=== PATIENT | female | born 1960 | race Caucasian/White ===

== ENCOUNTER 2017-05-29 11:06 | Outpatient (CLI) | payer MEDICARE ==
[~2017-05-29] VITALS: Ht 149.9 cm; Wt 77.3 kg
[~2017-05-29 11:06] MED LIST: ACETAMINOPHEN-C1 TAB PO; COLACE100 MG PO; COREG 3.1253.125 MG PO; ELIQUIS2.5 MG PO; GARCINIA CAMBOGIA PO; HYDROCODONE-APA1 TAB PO; LIPITOR10 MG PO; MOBIC7.5 MG PO; NEURONTIN 300300 MG PO; OXYCODONE HCL5 MG PO; RANEXA500 MG PO; WELLBUTRIN75 MG PO; XANAX0.25 MG PO; ZETIA10 MG PO; [UNRECOGNIZED DRUG - OTHER]
[2017-05-29] MEDS ORDERED: VALIUM5 MG PO (11:37)
[2017-05-29] MEDS ORDERED: CYMBALTA30 MG PO (11:38)
[2017-05-29] MEDS ORDERED: VITAMIN B-1000 MCG/M IM (11:39)
[2017-05-29] MEDS ORDERED: FUROSEMIDE20 MG PO (11:39)
[2017-05-29 11:47] VITALS: BP 81/35; Ht 149.9 cm; Wt 77.3 kg
== END 2017-05-29 12:21 | disposition home or self-care (01) ==
LOC: D.OPS 11:06
DX: M81.0 Age-related osteoporosis without current pathological fracture (principal)

== ENCOUNTER 2018-07-05 15:03 | Observation (INO) | payer MEDICARE ==
[~2018-07-05] VITALS: Ht 149.9 cm; Wt 77.3 kg
[~2018-07-05 15:03] MED LIST changes: +CYMBALTA30 MG PO; +FUROSEMIDE20 MG PO; +VALIUM5 MG PO; +VITAMIN B-1000 MCG/M IM
[2018-07-05 21:00] VITALS: BP 142/59
[2018-07-05 22:00] VITALS: BP 129/69
[2018-07-05 22:33] LABS: BASOPHILS 0.3 % (0-2); EOSINOPHILS 1.6 % (0-7); HEMATOCRIT 35.5 % (36.0-48.0); HEMOGLOBIN 11.8 g/dL (12-16); LYMPHOCYTES 39.5 % (15-50); MCH 30.6 pg (26.0-34.0); MCHC 33.2 g/dL (31.0-37.0); MCV 92.2 fL (80.0-100.0); MEAN PLATELET VOLUME 9.7 fL (7.4-10.4); MONOCYTES 8.6 % (2-11); PLATELET COUNT 207 10x3/uL (130-400); RBC 3.85 10x6/uL (4.00-5.40); RDW 13.6 % (11.5-14.5); WBC 6.2 10x3/uL (4.8-10.8)
[2018-07-05 22:39] LABS: INR 1.17 (0.85-1.17); PROTIME 14.5 SECONDS (11.6-15.0)
[2018-07-05 22:47] LABS: ALBUMIN 3.3 g/dL (3.4-5.0); ANION GAP 11.5 mmol/L (8-16); BILIRUBIN - TOTAL 0.31 mg/dL (0.2-1.3); CALCIUM 8.6 mg/dL (8.5-10.1); CARBON DIOXIDE 25.7 mmol/L (21.0-32.0); CREATININE - SERUM 0.9 mg/dL (0.6-1.3); POTASSIUM - SERUM 3.2 mmol/L (3.5-5.1); PROTEIN - SERUM 7.1 g/dL (6.4-8.2)
[2018-07-05] MEDS ORDERED: TRAZODONE HCL50 MG PO (23:27)
[2018-07-05] MEDS ORDERED: REXULTI1 MG PO (23:27)
[2018-07-05] MEDS ORDERED: NORCO 7.5/325 T1 TA1 PO (23:29)
[2018-07-05 23:30] VITALS: BP 116/51; BMI 34.4
[2018-07-06 04:00] VITALS: BP 101/60
[2018-07-06 06:33] LABS: BASOPHILS 0.5 % (0-2); EOSINOPHILS 2.8 % (0-7); HEMATOCRIT 32.7 % (36.0-48.0); HEMOGLOBIN 10.9 g/dL (12-16); IMMATURE GRANULOCYTES 0.2 % (0-5); LYMPHOCYTES 45.7 % (15-50); MCH 30.7 pg (26.0-34.0); MCHC 33.3 g/dL (31.0-37.0); MCV 92.1 fL (80.0-100.0); MEAN PLATELET VOLUME 9.7 fL (7.4-10.4); MONOCYTES 8.2 % (2-11); NEUTROPHILS 42.6 % (40-80); PLATELET COUNT 185 10x3/uL (130-400); RBC 3.55 10x6/uL (4.00-5.40); RDW 13.9 % (11.5-14.5); WBC 6.1 10x3/uL (4.8-10.8)
[2018-07-06 06:43] LABS: INR 1.24 (0.85-1.17); PROTIME 15.1 SECONDS (11.6-15.0)
[2018-07-06 06:48] LABS: CALC OSMOLALITY 275 mosm/kg (275-300); CALCIUM 8.2 mg/dL (8.5-10.1); CARBON DIOXIDE 25.3 mmol/L (21.0-32.0); CHLORIDE - SERUM 108 mmol/L (98-107); CREATININE - SERUM 0.8 mg/dL (0.6-1.3); GLUCOSE 84 mg/dL (74-106); POTASSIUM - SERUM 3.2 mmol/L (3.5-5.1); SODIUM 139 mmol/L (136-145); UREA NITROGEN 9 mg/dL (7-18); eGFR NON AFRICAN AMERICAN 77 mL/min (90-120)
[2018-07-06 08:32] VITALS: BP 134/63
[2018-07-06 11:00] VITALS: BP 105/48
[2018-07-06 13:07] VITALS: Ht 149.9 cm; Wt 77.3 kg
[2018-07-06 13:35] LABS: % SATURATION 23 % (15-55); IRON 48 ug/dl (35-150); TOTAL IRON BIND CAPACITY 208 ug/dl (260-445); UNSAT IRON BIND CAPACITY 160 ug/dl (150-375)
[2018-07-06 16:00] VITALS: BP 107/52
[2018-07-06 20:00] VITALS: BP 90/46
[2018-07-07 04:00] VITALS: BP 85/25
[2018-07-07 06:33] LABS: BASOPHILS 0.5 % (0-2); EOSINOPHILS 3.3 % (0-7); HEMATOCRIT 32.1 % (36.0-48.0); HEMOGLOBIN 10.3 g/dL (12-16); IMMATURE GRANULOCYTES 0.3 % (0-5); MCHC 32.1 g/dL (31.0-37.0); MCV 93.6 fL (80.0-100.0); MEAN PLATELET VOLUME 9.5 fL (7.4-10.4); MONOCYTES 9.3 % (2-11); NEUTROPHILS 44.6 % (40-80); PLATELET COUNT 175 10x3/uL (130-400); RBC 3.43 10x6/uL (4.00-5.40); RDW 13.9 % (11.5-14.5)
[2018-07-07 06:59] LABS: ANION GAP 8.9 mmol/L (8-16); CALCIUM 8.3 mg/dL (8.5-10.1); CARBON DIOXIDE 26.4 mmol/L (21.0-32.0); CREATININE - SERUM 1.1 mg/dL (0.6-1.3); POTASSIUM - SERUM 4.3 mmol/L (3.5-5.1)
[2018-07-07 10:22] VITALS: BP 95/36
[2018-07-07] MEDS ORDERED: MS CONTIN30 MG PO (13:56)
[2018-07-10 08:18] LABS: FOLATE (FOLIC ACID) - SERUM 7.5 ng/mL (>3.0)
== END 2018-07-07 15:25 | disposition home or self-care (01) ==
LOC: D.ER 15:03 → D.MS 22:16 → D.EDHOLD 22:16 → OBSVTIME 22:17 → D.MS 22:33
PROVIDERS: Family Medicine; Internal Medicine Nephrology
DX: S32.039A Unspecified fracture of third lumbar vertebra, initial encounter for closed fracture (principal); S32.049A Unspecified fracture of fourth lumbar vertebra, initial encounter for closed fracture; W19.XXXA Unspecified fall, initial encounter; I25.10 Atherosclerotic heart disease of native coronary artery without angina pectoris; Z95.5 Presence of coronary angioplasty implant and graft; R53.2 Functional quadriplegia; J44.9 Chronic obstructive pulmonary disease, unspecified; K21.9 Gastro-esophageal reflux disease without esophagitis; D64.9 Anemia, unspecified; E87.6 Hypokalemia; I11.0 Hypertensive heart disease with heart failure; I50.9 Heart failure, unspecified

== ENCOUNTER 2019-12-19 13:35 | Inpatient (IN) | payer MEDICARE ==
[~2019-12-19] VITALS: Ht 149.9 cm; Wt 69.4 kg
[~2019-12-19 13:35] MED LIST changes: +BUPROPION XL300 MG PO; -COREG 3.1253.125 MG PO; +COREG6.25 MG PO; +MS CONTIN30 MG PO; +NORCO 7.5/325 T1 TA1 PO; +REXULTI1 MG PO; +TRAZODONE HCL50 MG PO; -WELLBUTRIN75 MG PO
[2020-01-13] MEDS ORDERED: EFFEXOR75 MG PO (13:46)
[2020-01-13] MEDS ORDERED: TRAZODONE HCL150 MG PO (13:47)
[2020-01-13] MEDS ORDERED: MACROBID100 MG PO (13:48)
[2020-01-14 11:44] LABS: BASOPHILS 0.4 % (0-2); EOSINOPHILS 0.3 % (0-7); HEMATOCRIT 38.7 % (36.0-48.0); HEMOGLOBIN 12.6 g/dL (12-16); IMMATURE GRANULOCYTES 0.1 % (0-5); MCH 29.7 pg (26.0-34.0); MCHC 32.6 g/dL (31.0-37.0); MCV 91.3 fL (80.0-100.0); MEAN PLATELET VOLUME 9.4 fL (7.4-10.4); NEUTROPHILS 66.2 % (40-80); RBC 4.24 10x6/uL (4.00-5.40); RDW 14.4 % (11.5-14.5)
[2020-01-14 11:49] LABS: PLATELET COUNT 212 10x3/uL (130-400)
[2020-01-14 11:51] LABS: ANION GAP 13.6 mmol/L (8-16); CALCIUM 9.2 mg/dL (8.5-10.1); CARBON DIOXIDE 24.9 mmol/L (21.0-32.0); POTASSIUM - SERUM 3.5 mmol/L (3.5-5.1)
[2020-01-14 11:52] LABS: APTT 26.4 SECONDS (22.8-39.4); INR 1.08 (0.85-1.17)
[2020-01-14 12:17] LABS: BACTERIA MODERATE /hpf (NEGATIVE); BILIRUBIN NEGATIVE (NEGATIVE); CALCIUM OXALATE CRYSTALS 0-5 /hpf (NONE SEEN); EPITHELIAL CELLS 0-5 /hpf (0-5); GLUCOSE NEGATIVE (NEGATIVE); KETONE MODERATE mg/dL (NEGATIVE); NITRITE NEGATIVE (NEGATIVE); RED CELLS - URINE RARE /hpf (0-5); SPECIFIC GRAVITY 1.025 (1.005-1.020); UROBILINOGEN NORMAL (NORMAL)
--- NOTE | 2020-01-14 14:24 | NUR ---
1400-DR SHANE NOTIFIED OF ABNORMAL UA.
[2020-01-19] VITALS (14 sets, daily range): BP systolic 81–124; BP diastolic 38–94; BMI 30.9
[2020-01-19 08:32] LABS: BACTERIA FEW /hpf (NEGATIVE); BILIRUBIN NEGATIVE (NEGATIVE); EPITHELIAL CELLS 0-5 /hpf (0-5); GLUCOSE NEGATIVE (NEGATIVE); KETONE SMALL mg/dL (NEGATIVE); NITRITE NEGATIVE (NEGATIVE); RED CELLS - URINE OCC /hpf (0-5); SPECIFIC GRAVITY 1.025 (1.005-1.020); UROBILINOGEN NORMAL (NORMAL); WHITE CELLS - URINE RARE /hpf (NEGATIVE)
--- NOTE | 2020-01-19 10:20 | NUR ---
HIBICLENSE ALCOHOL PREP PRIOR TO CHLORAPREP
--- NOTE | 2020-01-19 12:37 | NUR ---
PT ARRIVED TO UNIT VIA BED ACCOMPANIED BY HOSPITAL STAFF AND FAMILY. PT HAS BULK DRESSING TO RT HIP. IV TO LEFT AC IS PATENT AND INFUSING NS AT 75ML/HR. KEELEY HOSE AND SCD'S IN PLACE BILATERALLY. PT IS ALERT AND ORINETED. PT STATES PAIN 9/10. LIBRARY TECHNOLOGY INSTRUCTOR TO BE SET UP. PT PEDAL PULSES PRESENT AND PT CAN WIGGLE TOES TO RT FOOT. VSS. WCTM.
--- NOTE | 2020-01-19 14:38 | NUR ---
PT BP TRENDING DOWN. 500ML BOLUS ADMINISTERED AT THIS TIME. PT IS ASYMPTOMATIC. PEDAL PULSES WNL. PT STATES SHE IS "JUST A LITTLE SLEEPY." WCTM.
--- NOTE | 2020-01-19 15:13 | NUR ---
PT BP UP TO 109/51 AT THIS TIME. PT DENIES NEEDS. WCTM.
--- NOTE | 2020-01-19 16:02 | NUR ---
PT DAM WORKER DOSE LOWERED TO 0.1MG D/T BP DROPPING. BP CURRENTLY UP TO 95/55. PT DENIES NEEDS. WCTM.
--- NOTE | 2020-01-19 16:30 | NUR ---
PT BP 79/49. WASTEWATER DESIGN ENGINEER DILAUDID DC'D AT THIS TIME. WILL SWITCH TO PO PAIN MEDICATION.
--- NOTE | 2020-01-19 16:52 | MORECARE ---
CASE MANAGEMENT DISCHARGE SUMMARY PATIENT: HOLLAND DUBOIS UNIT: [id number] ADM DATE: 01/19/20 AGE: 59 : 56 SEX: F ROOM/BED: D.1209 AUTHOR: BENJAMIN COELHO PHYSICIAN: REFERRING PHYSICIAN: MAURICE SHANE MD DATE OF SERVICE: 01/19/20 Discharge Plan Patient Name: HOLLAND DUBOIS Facility: [facility]:[place] : 1960 Planned Disposition: Anticipated Discharge Date: 01/21/20 Discharge Date: Expected LOS: 2 Initial Reviewer: [email or web address] Initial Review Date: 01/19/2020 Generated: 01/19/20 5:52 pm Patient Name: HOLLAND DUBOIS Page [id number] at 1652 All edits/amendments must be made on the electronic document DICTATION DATE: 01/19/201651 SOLID WASTE FACILITY OPERATOR: JENNIFER 01/19/201651 RPT#: [id number] DC DATE: STATUS: ADM IN [facility] [address] [place] [address] END OF REPORT
--- NOTE | 2020-01-19 16:59 | MORECARE ---
CASE MANAGEMENT DISCHARGE SUMMARY PATIENT: HOLLAND MONDRAGON UNIT: [id number] ADM DATE: 01/19/20 AGE: 59 : 56 SEX: F ROOM/BED: D.1209 AUTHOR: LAQUITA,DOC PHYSICIAN: REFERRING PHYSICIAN: MAURICE SHANE MD DATE OF SERVICE: 01/19/20 Discharge Plan Patient Name: HOLLAND MONDRAGON Facility: [facility]:[place] : 1960 Planned Disposition: Anticipated Discharge Date: 01/21/20 Discharge Date: Expected LOS: 2 Initial Reviewer: [id number] Initial Review Date: 01/19/2020 Generated: 01/19/20 5:59 pm DCP- Discharge Planning Updated by [email or web address]: Deb Ramirez on 01/19/20 3:[address] DC PLAN: Inpatient rehab pending. PROCEDURE: Right total hip arthroplasty OP THERAPY APPOINTMENT DATE: n/a CM met with patient to complete initial dc planning assessment. CM educated patient on the CM role and verbal consent given by patient to complete assessment. CM verified patient's address, phone number, and emergency contact phone numbers. Patient lives at home alone and reports she has a cg that comes 3 week to assist with ADL's through [employer]. She reports her elderly mom is planning on staying with her when she gets to go home. At discharge patient plans to go to rehab. CM discussed availability of home health, rehab services, and medical equipment. Patient chose [facility] . KAREN form presented, explained, and signed for 1. [facility] and 2. [facility]. Signed form placed in chart and left with the patient. CM will continue to follow and will assist as needed with dc plans/needs. Deb Ramirez RN, [facility] DCPIA - Discharge Planning Initial Assessment Updated by [email or web address]: Deb Ramirez on 01/19/20 4:52 pm * Is the patient Alert and Oriented? Yes * How many steps to enter\exit or inside your home? None * PCP Dr. Lara * [facility] in [place] * Preadmission Environment Home Alone * ADLs Partial Dependent * Equipment Rolling Walker * List name and contact numbers for known caregivers / representatives who currently or will assist patient after discharge: Alistair Mondragon - Son - [phone] * Verbal permission to speak to the caregivers and representatives has been obtained from the patient. Yes * Community resources currently utilized Private Duty Care * Please name any agencies selected above. Aide 3 x week. * Additional services required to return to the preadmission environment? Yes * Can the patient safely return to the preadmission environment? Yes * Has this patient been hospitalized within the prior 30 days at any hospital? No Coverage Notice Reviewer: [id number] Jerilyn Ramirez Notice Issued Date-Time: 01/19/2020 16:15 Notice Type: IM Admission Notice Notice Delivered To: Patient Relationship to Patient: Metal Sorter Name: Delivery Method: - Guera Days: Prior Verbal Notification: Recipient Understood Notice: Recipient Signature: Med Rec Note Co-signed by Attending: Coverage Notice Comment: Last DP export: 01/19/20 3:52 p Patient Name: HOLLAND MONDRAGON Page [phone] at 1659 All edits/amendments must be made on the electronic document DICTATION DATE: 01/19/201658 SHIELD INSTALLER: JENNIFER 01/19/201658 RPT#: [id number] DC DATE: STATUS: ADM IN [facility] [address] [place] [address] END OF REPORT
--- NOTE | 2020-01-19 17:10 | NUR ---
PT BP 98/51. PRN PERCOCET GIVEN AT THIS TIME. WCTM.
--- NOTE | 2020-01-19 19:45 | NUR ---
LYING IN BED. ALERT AND ORIENTED X4. RESP EVEN AND NONLABORED. B/P TRENDING LOW. PT C/O PAIN 10 IN RT HIP. RECEIVED PERCOCET PRIOR TO SHIFT CHANGE FOR PAIN. DRSG TO RT HIP IS C/D/I. ICE PACK IN PLACE TO RT HIP. SCDS IN USE BILAT. TEDHOSE IN USE BILAT. 1/2 NS @ 100 MLHR INFUSING IN LT AC WITHOUT DIFF. SR ELEVATED X2. CL IN REACH.
--- NOTE | 2020-01-19 22:00 | NUR ---
B/P STILL TOO LOW FOR NARCOTIC PAIN MEDS. WILL CONT TO MONITOR. PT IS ALERT AND ASYMPTOMATIC.
[2020-01-20] VITALS (8 sets, daily range): BP systolic 90–119; BP diastolic 47–74; Ht 149.9 cm; Wt 69.4 kg
--- NOTE | 2020-01-20 00:59 | NUR ---
B/P FINALLY WNL OF 110/70 PER MANUAL B/P CUFF IN LLE. PT REQUESTING PAIN MED. EXPLAINED THAT B/P MIGHT DROP BUT SHE INSISTS SHE NEEDS THE PAIN MED. MEDICATED ORDERED.
--- NOTE | 2020-01-20 01:05 | NUR ---
MEDICATED WITH PERCOCET FOR C/O PAIN IN RT HIP RATING 9. CL IN REACH.
--- NOTE | 2020-01-20 04:10 | NUR ---
BED BATH GIVEN AND COMPLETE LINEN CHANGE PER HAT BLOCK MAKER. C/O PAIN BUT B/P IS 90/48 AT THIS TIME. CL IN REACH.
--- NOTE | 2020-01-20 04:15 | NUR ---
BED BATH AND COMPLETE LINEN CHANGE PERFORMED PER TECH AT THIS TIME. CL IN REACH.
[2020-01-20 06:56] LABS: HEMATOCRIT 30.5 % (36.0-48.0); HEMOGLOBIN 9.7 g/dL (12-16); MCH 29.3 pg (26.0-34.0); MCHC 31.8 g/dL (31.0-37.0); MCV 92.1 fL (80.0-100.0); MEAN PLATELET VOLUME 9.8 fL (7.4-10.4); RBC 3.31 10x6/uL (4.00-5.40); RDW 14.2 % (11.5-14.5); WBC 8.9 10x3/uL (4.8-10.8)
--- NOTE | 2020-01-20 07:30 | NUR ---
AWAKE AND ALERT. ORIENTED X3. C/O SOME PAIN TO RIGHT HIP. WILL MONITOR. LUNGS ARE CLEAR BILATERALLY, NO COUGH NOTED. REPORTED USED IS INSTRUCTED. IV TO LEFT AC IS PATENT WITHOUT REDNESS AT INSERTION SITE. BREAKFAST SERVED IN ROOM. PLACED ON BEDPAN PER STAFF.
--- NOTE | 2020-01-20 07:45 | NUR ---
VOIDED 200 CC CLEAR YELLOW URINE. SKIN CARE PER STAFF. REPOSITIONED IN BED FOR COMFORT. EATING BREAKFAST.
--- NOTE | 2020-01-20 10:19 | NUR ---
UP TO CHIAR AT BEDSIDE PER PT. REPORTS PAIN IMPROVED WITH OOB. ATE MOST OF BREAKFAST. DENIES NEEDS.
--- NOTE | 2020-01-20 10:38 | NUR ---
REQUESTED AND GIVEN ONE PERCOCET PO FOR C/O RIGHT HIP PAIN LEVEL 8. WILL MONITOR.
--- NOTE | 2020-01-20 10:56 | NUR ---
Rehab Note- Acute INpatient REhab prescreen order received. The patient is POD #1 of MODE[facility], she has a pending PT Eval to assess her physical mobility. Will follow at this time. Thank you for this referral! Keya Allen RN Clinical Liaison, [facility] Rehab
--- NOTE | 2020-01-20 13:00 | NUR ---
ASSISTED BACK TO BED. POSITIONED FOR COMFORT. DENIES NEEDS.
--- NOTE | 2020-01-20 15:48 | NUR ---
REHAB PRESCREENING Rehab referral received and chart reviewed. Ms. Mondragon is POD 1, rehab will continue to follow for admission criteria. Thank you for this referral! Susi Landa, FULL STACK PHP DEVELOPER Rehab PD
--- NOTE | 2020-01-20 19:05 | NUR ---
ALERT AND ORIENTED X4. C/O PAIN IN RT HIP AND REQUESTS PAIN MED. B/P STABLE. MEDICATED WITH PERCOCET ORDERED. RESP EVEN AND NONLABORED. SCDS AND TEDHOSE IN USE BILAT. DRSG NOTED TO RT HIP C/D/I. SALINE LOCK NOTED TO LT AC. ENCOURAGED USE OF I.S. SR ELEVATED X2. CL IN REACH.
--- NOTE | 2020-01-20 19:22 | NUR ---
DIDN'T EAT MUCH OF SUPPER. STATED SHE FOUND A HAIR IN HER SPAGETTI. ASSISTED WITH BED QUINTERO PER STAFF. LINENS WERE WET. COMPLETE BED CHANGE AFTER URINATION. REPOSITIONED IN BED FOR COMFORT. DENIES NEEDS. NO CHANGES NOTED.
--- NOTE | 2020-01-21 00:25 | NUR ---
ASSISTED ONTO BEDPAN TO VOID. C/O PAIN IN RT HIP. MEDICATED WITH PERCOCET ORDERED. B/P STABLE. CL IN REACH.
[2020-01-21 00:31] VITALS: BP 110/58
--- NOTE | 2020-01-21 01:38 | NUR ---
RESTING ON LT SIDE WITH EYES CLOSED. RESP NONLABORED. NO DISTRESS. CL IN REACH.
--- NOTE | 2020-01-21 03:03 | NUR ---
LYING ON LT SIDE IN BED WITH EYES CLOSED. RESP EVEN AND NONLABORED. NO DISTRESS. CL IN REACH.
--- NOTE | 2020-01-21 04:00 | NUR ---
MANPOWER DEVELOPMENT SPECIALIST OFFERED TO GIVE PT A BED BATH AND PT STATES, "I JUST CANT DO IT. MY HIP IS BOTHERING ME TOO BAD RIGHT NOW."
[2020-01-21 04:26] VITALS: BP 103/54
--- NOTE | 2020-01-21 05:14 | NUR ---
MEDICATED WITH PERCOCET FOR C/O PAIN IN RT HIP RATING 7. CL IN REACH.
[2020-01-21 06:13] LABS: HEMATOCRIT 30.9 % (36.0-48.0); HEMOGLOBIN 9.9 g/dL (12-16); MCH 29.2 pg (26.0-34.0); MCV 91.2 fL (80.0-100.0); MEAN PLATELET VOLUME 9.9 fL (7.4-10.4); RBC 3.39 10x6/uL (4.00-5.40); RDW 14.6 % (11.5-14.5); WBC 9.6 10x3/uL (4.8-10.8)
[2020-01-21 09:16] VITALS: BP 122/56
--- NOTE | 2020-01-21 09:25 | NUR ---
PT ALERT X 4. BREATH SOUNDS CLEAR BILAT. IV TO LEFT AC, SALINE LOCKED. DRESSING TO RIGHT HIP CDI. PT REPORTING PAIN OF 8/10, MEDICATED PER ORDERS, WILL MONITOR. BED LOW, CALL LIGHT IN REACH. NO OTHER NEEDS AT THIS TIME.
--- NOTE | 2020-01-21 11:11 | OP ---
PATIENT NAME: HOLLAND DUBOIS MEDICAL RECORD: [id number] :56 LOCATION:D.M3 D.1209 ADMISSION DATE:01/19/20 SURGEON: MAURICE SHANE MD DATE OF OPERATION: 01/19/2020 PREOPERATIVE DIAGNOSIS: Degenerative arthritis, right hip. POSTOPERATIVE DIAGNOSIS: Degenerative arthritis, right hip. PROCEDURE: Right total hip arthroplasty. SURGEON: Maurice Shane MD SENSITOMETRIST: BETO Roy INTRAOPERATIVE COMPLICATIONS: None. SUMMARY OF PATHOLOGIC FINDINGS: The patient had osteoarthritis of the right hip consistent with preoperative patient's symptoms. IMPLANTS USED: [place] total hip arthroplasty system with a Trident 2, size 50 alpha code D, 132 degree neck angle hip stem size 5, 0-degree polyethylene insert and a standard 36 Biolox ceramic femoral head. ESTIMATED BLOOD LOSS: 200 cc. OPERATIVE SUMMARY IN DETAIL: After obtaining the appropriate preoperative orthopedic surgery consent as well as anesthetic consultation, evaluation, and clearance, the patient was brought to the operating room and placed on the operating table in the supine position. After adequate general laryngeal mask airway was administered, the patient was placed in left lateral decubitus position. All pressures points were well padded to include down leg peroneal pad as well as axillary roll. The patient was held firmly to the operating table using the vacuum pack suction system. Right lower extremity and hip were then prepped and draped in routine sterile fashion. Curvilinear incision was made over the greater trochanter, taken down to the level of the iliotibial band, which was split in line with the fibers of the iliotibial band to reveal the gluteus medius minimus attachment. The gluteus minimus attachment were very gently reflected anteriorly. The hip capsule was split in a T-type fashion and saved for later reapproximation. The hip was then dislocated. Femoral neck cut was made using the femoral neck cutting guide and then the acetabulum was approached. Circumferential labrectomy of the acetabulum was then followed by removal of substantial peripheral osteophytes. Serial and sequential reaming were done for a size 50 [place] Trident 2 cup. Good capture was achieved. This was put into the appropriate position and polyethylene was then tamped into place, checked and found to be stable. Attention was then turned to the proximal femur. Serial hematocrits reaming and broaching were done for a size 5, Accolade II TMZF coated stem. This was tamped into place. Trials were undertaken. It was felt that the standard was the most appropriate for tension, stability, and leg length discrepancy. The size standard 36 Biolox was tamped on the Marcelo taper, reduced, taken through range of motion and found to be stable and the appropriate tension and leg lengths were equal At this point, the wound was copiously irrigated and filled with a gram of vancomycin and a gram of tobramycin. Capsule was closed with 2-0 Ethibond. The gluteus medius and minimus were reattached in a transosseous fashion back to the greater trochanter OPERATIVE REPORT [id number] HOLLAND DUBOIS by BETO Roy. This was followed by closure of the IT band with #5 Ethibond, #1 Vicryl, 2-0 Vicryl and skin samuel for final closure. Sterile dressings were applied. Please note that intraoperative radiographs were taken and showed good position and placement with equal leg lengths. The patient was awakened and taken to the recovery room in stable condition. All final needle and sponge counts were correct. TRANSINT:[id number] Voice Confirmation ID: [id number] DOCUMENT ID: [id number] SVITLANA ZACARIAS, MAURICE SCHMIDT at 1111 CC: [id number] DICTATION DATE: 01/19/20 1127 MOTOR BUILDER ASSEMBLER: 01/19/20 1842 ADM IN [facility] [address] [place] [id number]
--- NOTE | 2020-01-21 19:25 | NUR ---
CLOTH DRIER ASSISTING PATIENT TO THE RR. NO S/S OF DISTRESS. WILL CONTINUE TO MONITOR.
[2020-01-21 20:25] VITALS: BP 118/50; BP 122/58
[2020-01-22] VITALS: BP 102/55
[2020-01-22 05:08] VITALS: BP 116/53
[2020-01-22 07:00] VITALS: BP 107/55
--- NOTE | 2020-01-22 07:10 | NUR ---
PT IS RESTING IN BED WITH EYES OPEN. RESPIRATIONS ARE EVEN AND UNLABORED. PT IS AAOX 4. PT DENIES PRESENCE OF DYSPNEA/SOB/N/V AT THIS TIME. DRESSING TO RIGHT HIP NOTED AND IS CDI. PT DENIES PRESENCE OF NUMBNESS/TINGLING TO BLE. BILATERAL PEDAL PULSES PALP AND CAP REFILL IS < 3. PT REPORTS SOME ABDOMINAL DISCOMFORT AND DENIES HAVING HAD A "RECENT" BM. BS ARE HYPOACTIVE X 4. PT REPORTS HAVING PASSED GAS. BED ALARM IS ON. INCENTIVE SPIROMETER AT BEDSIDE. PT EDUCATED ON IMPORTANCE OF USE OF I.S. PT VERBALIZES UNDERSTANDING AND STATES "I JUST FINISHED USING IT". TEDS/SCDS IN PLACE. BED IS IN THE LOWEST POSITION. CALL LIGHT AND BEDSIDE TABLE ARE WITHIN REACH. SIDE RAILSX 2. PT DENIES FURTHER NEEDS. WILL CONT TO MONITOR.
[2020-01-22 09:36] VITALS: BP 100/50
--- NOTE | 2020-01-22 10:05 | NUR ---
PT SITTING IN BEDSIDE CHAIR. ANGELA ALARM IS ON AND WORKING. SCDS ARE OFF PER PT REQUEST. INCENTIVE SPIROMETER WITHIN REACH. CALL LIGHT AND BEDSIDE TABLE WITHIN REACH. WILL CONT TO MONITOR.
[2020-01-22 11:00] VITALS: BP 95/43
[2020-01-22] MEDS ORDERED: PERCOCET 10-321 EAC1 PO (12:00)
[2020-01-22] MEDS ORDERED: ELIQUIS2.5 MG PO (12:00)
--- NOTE | 2020-01-22 13:04 | MORECARE ---
CASE MANAGEMENT DISCHARGE SUMMARY PATIENT: HOLLAND MONDRAGON UNIT: [id number] ADM DATE: 01/19/20 AGE: 59 : 56 SEX: F ROOM/BED: D.1209 AUTHOR: LAQUITA,DOC PHYSICIAN: REFERRING PHYSICIAN: MAURICE SHANE MD DATE OF SERVICE: 01/22/20 Discharge Plan Patient Name: HOLLAND MONDRAGON Facility: [facility]:[place] : 1960 Planned Disposition: Anticipated Discharge Date: 01/21/20 Discharge Date: Expected LOS: 2 Initial Reviewer: [email or web address] Initial Review Date: 01/19/2020 Generated: 01/22/20 2:03 pm DCP- Discharge Planning Updated by [email or web address]: Deb Ramirez on 01/19/20 3:[address] DC PLAN: Inpatient rehab pending. PROCEDURE: Right total hip arthroplasty OP THERAPY APPOINTMENT DATE: n/a CM met with patient to complete initial dc planning assessment. CM educated patient on the CM role and verbal consent given by patient to complete assessment. CM verified patient's address, phone number, and emergency contact phone numbers. Patient lives at home alone and reports she has a cg that comes 3 week to assist with ADL's through [employer]. She reports her elderly mom is planning on staying with her when she gets to go home. At discharge patient plans to go to rehab. CM discussed availability of home health, rehab services, and medical equipment. Patient chose [facility] . KAREN form presented, explained, and signed for 1. [facility] and 2. [facility]. Signed form placed in chart and left with the patient. CM will continue to follow and will assist as needed with dc plans/needs. Deb Ramirez RN, [facility] DCPIA - Discharge Planning Initial Assessment Updated by [email or web address]: Deb Ramirez on 01/19/20 4:52 pm * Is the patient Alert and Oriented? Yes * How many steps to enter\exit or inside your home? None * PCP Dr. Lara * [facility] in [place] * Preadmission Environment Home Alone * ADLs Partial Dependent * Equipment Rolling Walker * List name and contact numbers for known caregivers / representatives who currently or will assist patient after discharge: Alistair Mondragon - Son - [phone] * Verbal permission to speak to the caregivers and representatives has been obtained from the patient. Yes * Community resources currently utilized Private Duty Care * Please name any agencies selected above. Aide 3 x week. * Additional services required to return to the preadmission environment? Yes * Can the patient safely return to the preadmission environment? Yes * Has this patient been hospitalized within the prior 30 days at any hospital? No External Providers [facility] Next Contact Date: Service Request Date: Service Type: Resolution: Reviewer: Comments: Coverage Notice Reviewer: [id number] Jerilyn Ramirez Notice Issued Date-Time: 01/19/2020 16:15 Notice Type: IM Admission Notice Notice Delivered To: Patient Relationship to Patient: Lockstitch Cup Setter Name: Delivery Method: - Guera Days: Prior Verbal Notification: Recipient Understood Notice: Yes Recipient Signature: Yes Med Rec Note Co-signed by Attending: Coverage Notice Comment: IMM delivered, explained, signed by the patient, and placed in his chart. Signed form also left with patient. Deb Ramirez RN, CCM Reviewer: [id number] Jerilyn Ramirez Notice Issued Date-Time: 01/19/2020 16:15 Notice Type: Patient Choice Letter Notice Delivered To: Patient Relationship to Patient: Lockstitch Cup Setter Name: Delivery Method: - Guera Days: Prior Verbal Notification: Recipient Understood Notice: Yes Recipient Signature: Yes Med Rec Note Co-signed by Attending: Coverage Notice Comment: 1. [facility] 2. [facility] Last DP export: 01/19/20 3:59 p Patient Name: HOLLAND MONDRAGON Page [id number] at 1304 All edits/amendments must be made on the electronic document DICTATION DATE: 01/22/20 1303 VICE PRESIDENT DIGITAL STRATEGIST: JENNIFER 01/22/20 1303 RPT#: [id number] DC DATE: STATUS: ADM IN [facility] [address] [place] [address] END OF REPORT
--- NOTE | 2020-01-22 13:11 | MORECARE ---
CASE MANAGEMENT DISCHARGE SUMMARY PATIENT: HOLLAND MONDRAGON UNIT: [id number] ADM DATE: 01/19/20 AGE: 59 : 56 SEX: F ROOM/BED: D.1209 AUTHOR: LAQUITA,DOC PHYSICIAN: REFERRING PHYSICIAN: MAURICE SHANE MD DATE OF SERVICE: 01/22/20 Discharge Plan Patient Name: HOLLAND MONDRAGON Facility: [facility]:[place] : 1960 Planned Disposition: Anticipated Discharge Date: 01/21/20 Discharge Date: Expected LOS: 2 Initial Reviewer: [email or web address] Initial Review Date: 01/19/2020 Generated: 01/22/20 2:11 pm DCP- Discharge Planning Updated by [email or web address]: Deb Ramirez on 01/19/20 3:[address] DC PLAN: Inpatient rehab pending. PROCEDURE: Right total hip arthroplasty OP THERAPY APPOINTMENT DATE: n/a CM met with patient to complete initial dc planning assessment. CM educated patient on the CM role and verbal consent given by patient to complete assessment. CM verified patient's address, phone number, and emergency contact phone numbers. Patient lives at home alone and reports she has a cg that comes 3 week to assist with ADL's through [employer]. She reports her elderly mom is planning on staying with her when she gets to go home. At discharge patient plans to go to rehab. CM discussed availability of home health, rehab services, and medical equipment. Patient chose [facility] . KAREN form presented, explained, and signed for 1. [facility] and 2. [facility]. Signed form placed in chart and left with the patient. CM will continue to follow and will assist as needed with dc plans/needs. Deb Ramirez RN, [facility] DCPIA - Discharge Planning Initial Assessment Updated by [email or web address]: Deb Ramirez on 01/19/20 4:52 pm * Is the patient Alert and Oriented? Yes * How many steps to enter\exit or inside your home? None * PCP Dr. Lara * [facility] in [place] * Preadmission Environment Home Alone * ADLs Partial Dependent * Equipment Rolling Walker * List name and contact numbers for known caregivers / representatives who currently or will assist patient after discharge: Alistair Mondragon - Son - [phone] * Verbal permission to speak to the caregivers and representatives has been obtained from the patient. Yes * Community resources currently utilized Private Duty Care * Please name any agencies selected above. Aide 3 x week. * Additional services required to return to the preadmission environment? Yes * Can the patient safely return to the preadmission environment? Yes * Has this patient been hospitalized within the prior 30 days at any hospital? No External Providers External Provider: OTHER-OTHER Next Contact Date: Service Request Date: Service Type: Resolution: Reviewer: Comments: Coverage Notice Reviewer: [email or web address] Jerilyn Ramirez Notice Issued Date-Time: 01/19/2020 16:15 Notice Type: IM Admission Notice Notice Delivered To: Patient Relationship to Patient: Pelt Dropper Name: Delivery Method: - Guera Days: Prior Verbal Notification: Recipient Understood Notice: Yes Recipient Signature: Yes Med Rec Note Co-signed by Attending: Coverage Notice Comment: IMM delivered, explained, signed by the patient, and placed in his chart. Signed form also left with patient. Deb Ramirez RN, CCM Reviewer: [email or web address] Jerilyn Ramirez Notice Issued Date-Time: 01/19/2020 16:15 Notice Type: Patient Choice Letter Notice Delivered To: Patient Relationship to Patient: Pelt Dropper Name: Delivery Method: - Guera Days: Prior Verbal Notification: Recipient Understood Notice: Yes Recipient Signature: Yes Med Rec Note Co-signed by Attending: Coverage Notice Comment: 1. [facility] 2. [facility] Last DP export: 01/22/20 12:03 p Patient Name: HOLLAND MONDRAGON Page [phone] at 1311 All edits/amendments must be made on the electronic document DICTATION DATE: 01/22/20 1311 FINANCIAL AID MANAGER: JENNIFER 01/22/20 1311 RPT#: [id number] DC DATE: STATUS: ADM IN [facility] [address] [place] [address] END OF REPORT
--- NOTE | 2020-01-22 13:26 | MORECARE ---
CASE MANAGEMENT DISCHARGE SUMMARY PATIENT: HOLLAND MONDRAGON UNIT: [id number] ADM DATE: 01/19/20 AGE: 59 : 56 SEX: F ROOM/BED: D.1209 AUTHOR: LAQUITA,DOC PHYSICIAN: REFERRING PHYSICIAN: MAURICE SHANE MD DATE OF SERVICE: 01/22/20 Discharge Plan Patient Name: HOLLAND MONDRAGON Facility: [facility]:[place] : 1960 Planned Disposition: Anticipated Discharge Date: 01/21/20 Discharge Date: Expected LOS: 2 Initial Reviewer: [email or web address] Initial Review Date: 01/19/2020 Generated: 01/22/20 2:26 pm Comments DCP- Discharge Planning Updated by [id number]: Ruth Vela on 01/22/20 12:[address] Received discharge orders. I spoke with the patient and she would like to go home with [facility]. States she has a walker, but will need a BSC. I called Dr. Encinas office and spoke with Karla. I called [facility] and Karla has sent an order to them for the BSC and will deliver it to the home. I called and spoke to Mp at [facility] in [place] and clinical and order faxed for [facility]. Home today with formerly [facility]. DCP- Discharge Planning Updated by [id number]: Debzackery Ramirez on 01/19/20 3:[address] DC PLAN: Inpatient rehab pending. PROCEDURE: Right total hip arthroplasty OP THERAPY APPOINTMENT DATE: n/a CM met with patient to complete initial dc planning assessment. CM educated patient on the CM role and verbal consent given by patient to complete assessment. CM verified patient's address, phone number, and emergency contact phone numbers. Patient lives at home alone and reports she has a cg that comes 3 week to assist with ADL's through [facility]. She reports her elderly mom is planning on staying with her when she gets to go home. At discharge patient plans to go to rehab. CM discussed availability of home health, rehab services, and medical equipment. Patient chose [facility] . KAREN form presented, explained, and signed for 1. [facility] and 2. [facility]. Signed form placed in chart and left with the patient. CM will continue to follow and will assist as needed with dc plans/needs. Deb Ramirez RN, CCM DCPIA - Discharge Planning Initial Assessment Updated by [id number]: Deb Ramirez on 01/19/20 4:52 pm * Is the patient Alert and Oriented? Yes * How many steps to enter\exit or inside your home? None * PCP Dr. Lara * [facility] in [place] * Preadmission Environment Home Alone * ADLs Partial Dependent * Equipment Rolling Walker * List name and contact numbers for known caregivers / representatives who currently or will assist patient after discharge: Alistair Mondragon - Bin - [phone] * Verbal permission to speak to the caregivers and representatives has been obtained from the patient. Yes * Community resources currently utilized [facility] * Please name any agencies selected above. Aide 3 x week. * Additional services required to return to the preadmission environment? Yes * Can the patient safely return to the preadmission environment? Yes * Has this patient been hospitalized within the prior 30 days at any hospital? No Coverage Notice Reviewer: [id number] - Deb Ramirez Notice Issued Date-Time: 01/19/2020 16:15 Notice Type: IM Admission Notice Notice Delivered To: Patient Relationship to Patient: Medical Art Therapist Name: Delivery Method: - Guera Days: Prior Verbal Notification: Recipient Understood Notice: Yes Recipient Signature: Yes Med Rec Note Co-signed by Attending: Coverage Notice Comment: IMM delivered, explained, signed by the patient, and placed in his chart. Signed form also left with patient. Deb Ramirez RN, CCM Reviewer: [id number] - Deb Ramirez Notice Issued Date-Time: 01/19/2020 16:15 Notice Type: Patient Choice Letter Notice Delivered To: Patient Relationship to Patient: Medical Art Therapist Name: Delivery Method: - Guera Days: Prior Verbal Notification: Recipient Understood Notice: Yes Recipient Signature: Yes Med Rec Note Co-signed by Attending: Coverage Notice Comment: 1. [facility] 2. [facility] Reviewer: [id number] Jerilyn Vela Notice Issued Date-Time: 01/22/2020 13:21 Notice Type: Patient Choice Letter Notice Delivered To: Patient Relationship to Patient: Self Medical Art Therapist Name: Delivery Method: HAND - Hand Delivered Guera Days: Prior Verbal Notification: Recipient Understood Notice: Yes Recipient Signature: Yes Med Rec Note Co-signed by Attending: Coverage Notice Comment: KAREN for [place] [facility] Reviewer: [id number] Jerilyn Vela Notice Issued Date-Time: 01/22/2020 13:21 Notice Type: IM Discharge Notice Notice Delivered To: Patient Relationship to Patient: Self Medical Art Therapist Name: Delivery Method: HAND - Hand Delivered Guera Days: Prior Verbal Notification: Recipient Understood Notice: Yes Recipient Signature: Yes Med Rec Note Co-signed by Attending: Coverage Notice Comment: Last DP export: 01/22/20 12:11 p Patient Name: HOLLAND MONDRAGON Page [id number] at 1326 All edits/amendments must be made on the electronic document DICTATION DATE: 01/22/20 1326 MOTOR PATROL OPERATOR: JENNIFER 01/22/20 1326 RPT#: [id number] DC DATE: STATUS: ADM IN [facility] [address] [place] [address] END OF REPORT
--- NOTE | 2020-01-22 14:03 | NUR ---
ALL DISCHARGE INSTRUCTIONS COVERED WITH PT. ALL QUESTIONS ANSWERED. DRESSING TO RIGHT HIP CHANGED PER ORDER. EXTRA SUPPLIES LEFT WITH PT. PIV TO LEFT AC REMOVED WITH CATHETER TIP INTACT. DRESSING APPLIED. ALL DISCHARGE PAPERS SIGNED. PT DENIES FURTHER QUESTIONS/CONCERNS/NEEDS AT THIS TIME. PT TO NOTIFY NURSE WHEN TRANSPORTATION IS OUT FRONT [facility]". WILL TRANSPORT PT FROM ROOM VIA WHEELCHAIR. ALL SIGNED DISCHARGE PAPERS PLACED IN PT CHART.
--- NOTE | 2020-01-22 14:14 | NUR ---
PT TRANSPORTED OFF FLOOR VIA WHEELCHAIR FOR TRANSPORT HOME. PT DENIES FURTHER QUESTIONS/CONCERNS/NEEDS AT THIS TIME. PT STATES THAT SHE DOES HAVE ALL OF HER BELONGINGS AND THANKS THIS NURSE FOR CARE GIVEN DURING THIS SHIFT.
--- NOTE | 2020-01-23 13:19 | MORECARE ---
CASE MANAGEMENT DISCHARGE SUMMARY PATIENT: HOLLAND MONDRAGON UNIT: [id number] ADM DATE: 01/19/20 AGE: 59 : 56 SEX: F ROOM/BED: D.1209 AUTHOR: LAQUITA,DOC PHYSICIAN: REFERRING PHYSICIAN: MAURICE SHANE MD DATE OF SERVICE: 01/23/20 Discharge Plan Patient Name: HOLLAND MONDRAGON Facility: [facility]:[place] : 1960 Planned Disposition: Home with Home Health Anticipated Discharge Date: 01/21/20 Discharge Date: 01/22/2020 Expected LOS: 2 Initial Reviewer: [email or web address] Initial Review Date: 01/19/2020 Generated: 01/23/20 2:19 pm Comments DCP- Discharge Planning Updated by [id number]: Ruthenoc Vela on 01/22/20 12:[address] Received discharge orders. I spoke with the patient and she would like to go home with [facility]. States she has a walker, but will need a BSC. I called Dr. Encinas office and spoke with Karla. I called [facility] and Karla has sent an order to them for the BSC and will deliver it to the home. I called and spoke to Mp at [facility] in [place] and clinical and order faxed for [facility]. Home today with [facility]. DCP- Discharge Planning Updated by [id number]: Debzackery Ramirez on 01/19/20 3:[address] DC PLAN: Inpatient rehab pending. PROCEDURE: Right total hip arthroplasty OP THERAPY APPOINTMENT DATE: n/a CM met with patient to complete initial dc planning assessment. CM educated patient on the CM role and verbal consent given by patient to complete assessment. CM verified patient's address, phone number, and emergency contact phone numbers. Patient lives at home alone and reports she has a cg that comes 3 week to assist with ADL's through [facility]. She reports her elderly mom is planning on staying with her when she gets to go home. At discharge patient plans to go to rehab. CM discussed availability of home health, rehab services, and medical equipment. Patient chose [facility] . KAREN form presented, explained, and signed for 1. [facility] and 2. [facility]. Signed form placed in chart and left with the patient. CM will continue to follow and will assist as needed with dc plans/needs. Deb Ramirez RN, CCM DCPIA - Discharge Planning Initial Assessment Updated by [id number]: Deb Ramirez on 01/19/20 4:52 pm * Is the patient Alert and Oriented? Yes * How many steps to enter\exit or inside your home? None * PCP Dr. Lara * [facility] in [place] * Preadmission Environment Home Alone * ADLs Partial Dependent * Equipment Rolling Walker * List name and contact numbers for known caregivers / representatives who currently or will assist patient after discharge: Alistair Mondragon - Bin - [phone] * Verbal permission to speak to the caregivers and representatives has been obtained from the patient. Yes * Community resources currently utilized [facility] * Please name any agencies selected above. Aide 3 x week. * Additional services required to return to the preadmission environment? Yes * Can the patient safely return to the preadmission environment? Yes * Has this patient been hospitalized within the prior 30 days at any hospital? No Coverage Notice Reviewer: [id number] Jerilyn Ramirez Notice Issued Date-Time: 01/19/2020 16:15 Notice Type: IM Admission Notice Notice Delivered To: Patient Relationship to Patient: Film Developer Name: Delivery Method: - Guera Days: Prior Verbal Notification: Recipient Understood Notice: Yes Recipient Signature: Yes Med Rec Note Co-signed by Attending: Coverage Notice Comment: IMM delivered, explained, signed by the patient, and placed in his chart. Signed form also left with patient. Deb Ramirez RN, CCM Reviewer: [id number] - Deb Ramirez Notice Issued Date-Time: 01/19/2020 16:15 Notice Type: Patient Choice Letter Notice Delivered To: Patient Relationship to Patient: Film Developer Name: Delivery Method: - Guera Days: Prior Verbal Notification: Recipient Understood Notice: Yes Recipient Signature: Yes Med Rec Note Co-signed by Attending: Coverage Notice Comment: 1. [facility] 2. [facility] Reviewer: [id number] - Ruth Vela Notice Issued Date-Time: 01/22/2020 13:21 Notice Type: Patient Choice Letter Notice Delivered To: Patient Relationship to Patient: Self Film Developer Name: Delivery Method: HAND - Hand Delivered Guera Days: Prior Verbal Notification: Recipient Understood Notice: Yes Recipient Signature: Yes Med Rec Note Co-signed by Attending: Coverage Notice Comment: KAREN for [facility] Reviewer: [id number] Jerilyn Vela Notice Issued Date-Time: 01/22/2020 13:21 Notice Type: IM Discharge Notice Notice Delivered To: Patient Relationship to Patient: Self Film Developer Name: Delivery Method: HAND - Hand Delivered Guera Days: Prior Verbal Notification: Recipient Understood Notice: Yes Recipient Signature: Yes Med Rec Note Co-signed by Attending: Coverage Notice Comment: Last DP export: 01/22/20 12:26 p Patient Name: HOLLAND MONDRAGON Page [phone] at 1319 All edits/amendments must be made on the electronic document DICTATION DATE: 01/23/201318 DEVELOPER PROVER UPHOLSTERING: JENNIFER 01/23/20 1319 RPT#: [id number] DC DATE:01/22/20 STATUS: DIS IN [facility] [address] [place] [address] END OF REPORT
== END 2020-01-22 14:15 | disposition home health service (06) | DRG 470 ==
LOC: D.SDCHOLD 01-14 10:00 → D.M3 01-19 07:52 → D.SDCHOLD 01-19 07:52 → D.M3 01-19 11:58 → D.SDCHOLD 01-26 10:00
PROVIDERS: ADMIT Orthopaedic Surgery; ATTEND Orthopaedic Surgery
PROC: 0SR904Z Replacement of Right Hip Joint with Ceramic on Polyethylene Synthetic Substitute, Open Approach (ICD-10-PCS; principal; 2020-01-19 09:30)
DX: M16.11 Unilateral primary osteoarthritis, right hip (principal); I10 Essential (primary) hypertension; I25.10 Atherosclerotic heart disease of native coronary artery without angina pectoris; J44.9 Chronic obstructive pulmonary disease, unspecified; Z72.0 Tobacco use

== ENCOUNTER → 2020-02-19 16:17 | Outpatient (CLI) | payer MEDICARE ==
[2020-01-20 10:03] VITALS: BMI 30.9
[~2020-02-19 16:17] MED LIST changes: +EFFEXOR75 MG PO; +MACROBID100 MG PO; +PERCOCET 10-321 EAC1 PO; +TRAZODONE HCL150 MG PO
== END | disposition home or self-care (01) ==
LOC: D.CT 16:17
PROVIDERS: ATTEND Clinical Nurse Specialist Family Health
DX: S32.9XXA Fracture of unspecified parts of lumbosacral spine and pelvis, initial encounter for closed fracture (principal)

== ENCOUNTER 2020-02-25 13:15 | Inpatient (IN) | payer MEDICARE ==
[~2020-02-25] VITALS: Ht 147.3 cm; Wt 68.0 kg
--- NOTE | 2020-02-25 13:05 | NUR ---
RECIEVED FROM HOME TO REHAB.PT HAS HX OF R MODESTA 01/19/20 AND FELL AT HOME ON 02/19/20.ALEERT AND ORIENTED TO ROOM AND SURROUNDINGS.CL IN REACH.
[2020-02-25 14:07] VITALS: BP 104/58; BMI 31.4
--- NOTE | 2020-02-25 15:29 | NUR ---
PATIENT IS NEW TO UNIT AND WILL BE RA AT NEXT MEETING. PATIENT ADMITTED TO REHAB FROM HOME. WILL CONTINUE TO FOLLOW WITH PATIENT AND WILL ASSIST WITH HER NEEDS.
--- NOTE | 2020-02-25 18:50 | NUR ---
GREETED PATIENT AND INTRODUCED MYSELF HER NURSE. ASSISTED PATIENT TO BATHROOM USING ONE PERSON ASSIST AND WHEELCHAIR. BACK TO BED AND REPOSITIONED FOR COMFORT.RESPIRATIONS EVEN. NO S/S OF DISTRESS. CALL LIGHT IN REACH.
[2020-02-25 19:45] VITALS: BP 82/44
--- NOTE | 2020-02-25 19:45 | NUR ---
PATIENTS VITALS TAKEN. PATIENTS BLOOD PRESSURE 82/44. LOWERED PATIENTS HEAD AND ELEVATED PATIENTS LEG BY RAISING THE BED AND PUTTING PILLOWS UNDER HER LEGS. WILL RECHECK BP IN Q1H.
[2020-02-25 21:04] VITALS: BP 98/68
--- NOTE | 2020-02-25 21:04 | NUR ---
RECHECKED PATIENT BLOOD PRESSURE USING ELECTRONIC BP CUFF - 82/32, RECHECKED WITH MANUAL BP CUFF 98/68.
[2020-02-25 23:43] VITALS: BP 104/50
--- NOTE | 2020-02-25 23:43 | NUR ---
RECHECKED PATIENTS BLOOD PRESSURE USING MANUAL BP CUFF. BP 104/50. WILL CONTINUE TO KEEP PATIENTS LEGS ELEVATED AND HEAD IN LOWEST POSITION.
--- NOTE | 2020-02-26 00:36 | NUR ---
PT RESTING QUIETLY WITH EYES CLOSED. RESPIRATIONS EVEN. NO S/S OF DISTRESS. HOB AT 10 DEGREES. LEGS ELEVATED ON PILLOWS AND FOOT OF BED AT 45 DEGREES TO HELP RAISE BLOOD PRESSURE. CALL LIGHT IN REACH.
[2020-02-26 02:42] VITALS: BP 122/72
[2020-02-26 07:12] LABS: BASOPHILS 0.4 % (0-2); HEMOGLOBIN 9.5 g/dL (12-16); IMMATURE GRANULOCYTES 0.4 % (0-5); LYMPHOCYTES 48.9 % (15-50); MCH 28.8 pg (26.0-34.0); MCHC 30.6 g/dL (31.0-37.0); MCV 93.9 fL (80.0-100.0); MEAN PLATELET VOLUME 9.1 fL (7.4-10.4); MONOCYTES 10.8 % (2-11); NEUTROPHILS 36.5 % (40-80); PLATELET COUNT 190 10x3/uL (130-400); RDW 15.2 % (11.5-14.5); WBC 5.3 10x3/uL (4.8-10.8)
[2020-02-26 07:31] LABS: CALC OSMOLALITY 277 mosm/kg (275-300); CALCIUM 7.9 mg/dL (8.5-10.1); CARBON DIOXIDE 29.3 mmol/L (21.0-32.0); CHLORIDE - SERUM 106 mmol/L (98-107); CREATININE - SERUM 0.8 mg/dL (0.6-1.3); GLUCOSE 108 mg/dL (74-106); POTASSIUM - SERUM 3.7 mmol/L (3.5-5.1); SODIUM 140 mmol/L (136-145); UREA NITROGEN 7 mg/dL (7-18); eGFR NON AFRICAN AMERICAN 77 mL/min (90-120)
[2020-02-26 07:50] VITALS: BP 93/39
[2020-02-26 13:39] VITALS: Ht 147.3 cm; Wt 68.0 kg
[2020-02-26 19:00] VITALS: BP 97/52
--- NOTE | 2020-02-26 22:30 | NUR ---
PT IN BED WATCHING TV, TOILETED, FALL PRECAUTIONS IN PLACE, FLUIDS/CALL LIGHT WITHIN REACH
--- NOTE | 2020-02-27 03:01 | NUR ---
PT ASLEEP AROUSES EASILY TO VOICE, NO NEEDS NOTED,FALL PRECAUTIONS IN PLACE, FLUIDS/CALL LIGHT WITHIN REACH
[2020-02-27 06:29] LABS: BASOPHILS 0.4 % (0-2); EOSINOPHILS 3.7 % (0-7); HEMOGLOBIN 9.2 g/dL (12-16); IMMATURE GRANULOCYTES 0.2 % (0-5); LYMPHOCYTES 48.7 % (15-50); MCH 28.9 pg (26.0-34.0); MCHC 30.7 g/dL (31.0-37.0); MCV 94.3 fL (80.0-100.0); MEAN PLATELET VOLUME 8.9 fL (7.4-10.4); MONOCYTES 11.8 % (2-11); NEUTROPHILS 35.2 % (40-80); PLATELET COUNT 193 10x3/uL (130-400); RBC 3.18 10x6/uL (4.00-5.40); RDW 15.5 % (11.5-14.5); WBC 5.7 10x3/uL (4.8-10.8)
[2020-02-27 06:58] LABS: CALC OSMOLALITY 279 mosm/kg (275-300); CALCIUM 7.9 mg/dL (8.5-10.1); CARBON DIOXIDE 27.6 mmol/L (21.0-32.0); CHLORIDE - SERUM 107 mmol/L (98-107); CREATININE - SERUM 0.8 mg/dL (0.6-1.3); GLUCOSE 96 mg/dL (74-106); POTASSIUM - SERUM 3.8 mmol/L (3.5-5.1); SODIUM 141 mmol/L (136-145); UREA NITROGEN 11 mg/dL (7-18); eGFR NON AFRICAN AMERICAN 77 mL/min (90-120)
[2020-02-27 08:06] VITALS: BP 97/49
--- NOTE | 2020-02-27 08:33 | NUR ---
The patient c/o pain in her right hip and pelvis. Provided percocet, see JOSELIN. She is able to assist staff with transfers and she is doing well to pivot.
[2020-02-27 09:50] VITALS: BP 97/49
--- NOTE | 2020-02-27 11:57 | NUR ---
The patient requested assist to the BR. She wet a little on her panties, provided her a depend. She c/o pain, rates it 06/14, will provide pain med. See MAR.
--- NOTE | 2020-02-27 16:30 | NUR ---
The patient says her pain is less now.
[2020-02-27 19:50] VITALS: BP 123/57
--- NOTE | 2020-02-27 19:50 | NUR ---
PATIENT RECEIVED SITTING UP IN BED WATCHING TV. ASSESSMENT & VITAL SIGNS DONE. BED LOW. ALARM ON. CALL LIGHT WITHIN REACH. WILL CONTINUE TO MONITOR.
--- NOTE | 2020-02-27 23:46 | NUR ---
PATIENT USED CALL LIGHT FOR ASSIST. PATIENT ASSIST INTO WHEELCHAIR. PATIENT HAD VOID IN TOILET. RETURNED TO LOW BED. ALARM ON. CALL LIGHT WITHIN REACH. WILL CONTINUE TO MONITOR.
--- NOTE | 2020-02-28 01:24 | NUR ---
PATIENT USED CALL LIGHT FOR ASSIST. PATIENT C/O PAIN TO RIGHT HIP LEG & FOOT. PAIN MEDICATION & TRAZADONE GIVEN. BED LOW. SIDE TABLE & CALL LIGHT WITHIN REACH. ALARM ON. CALL LIGHT ITHIN REACH. WILL CONTINUE TO MONITOR.
[2020-02-28 07:47] VITALS: BP 100/57
--- NOTE | 2020-02-28 08:00 | NUR ---
INTRODUCED SELF TO PATIENT AND WROTE NAME ON BOARD, PT. DENIES ANY NEEDS AT THIS TIME, C/L AND H2O IN REACH.
--- NOTE | 2020-02-28 12:04 | NUR ---
ASSISTED PATIENT INTO W/C TO GO TO BATHROOM THEN ASSIST BACK TO BED, HOB AT 45 DEGREES, GOT PT. CUP OF ICE, DENIES ANY OTHER NEEDS AT THIS TIME, C/L AND H2O IN REACH.
[2020-02-28 20:10] VITALS: BP 98/46
--- NOTE | 2020-02-28 20:15 | NUR ---
PATIENT RECEIVED SITTING UP IN BED WATCHING TV. ASSESSMENT & VITAL SIGNS DONE. NO C/O PAIN OR DISTRESS. BED LOW. ALARM ON. CALL LIGHT WITHIN REACH. WILL CONTINUE TO MONITOR.
--- NOTE | 2020-02-28 20:25 | NUR ---
PATIENT USED CALL LIGHT FOR ASSIST. PATIENT TRANSFERRED INTO WHEELCHAIR. PATIENT TOILETED. VOID ONLY. PATIENT RETURNED TO BED, MINIMAL ASSIST. BED LOW. ALARM ON. CALL LGITH WITHIN REACH. WILL CONTINUE TO MONITOR.
--- NOTE | 2020-02-28 23:46 | NUR ---
I have reviewed this patient and I concur with the Shift Assessment completed by the Licensed Practical Nurse today this shift.
--- NOTE | 2020-02-28 23:50 | NUR ---
PATIENT USED CALL LIGHT FOR ASSIST. PATIENT MINIMAL ASSIST INTO & OUT OF BED. ONTO & OFF COMMODE. VOID ONLY. BED LOW. CALL LIGHT WITHIN REACH. WILL CONTINUE TO MONITOR.
--- NOTE | 2020-02-29 02:37 | NUR ---
PATIENT USED CALL LIGHT FOR ASSIST. PATIENT MOD ASSIST INTO WHEELCHAIR. PATIENT TOILETED. VOID ONLY. PATIENT RETURNED TO BED. PATIENT PAIN LEVEL 8. PATIENT GIVEN HER PAIN MEDICATION PER ORDER. BED LOW. ALARM ON. CALL LIGHT WITHIN REACH. WILL CONTINUE TO MONITOR.
[2020-02-29 08:00] VITALS: BP 96/51
--- NOTE | 2020-02-29 08:00 | NUR ---
INTRODUCED SELF TO PATIENT PUT NAME ON BOARD, PT. RESTING IN BED, DENIES ANY PAIN OR NEEDS AT THIS TIME, V/S AND ASSESSMENT COMPLETE, C/L AND H2O IN REACH.
--- NOTE | 2020-02-29 12:00 | NUR ---
RESTING IN BED, DENIES ANY NEEDS AT THIS TIME, HELPED PT. TO BATHROOM AND BACK INTO BED, C/L AND H2O IN REACH.
--- NOTE | 2020-02-29 19:45 | NUR ---
PATIENT RECEIVED SITTING UP IN BED WATCHING TV. ASSESSMENT & VITAL SIGNS DONE. PAIN MEDICATION GIVEN EARLIER EFFECTIVE. BED LOW. ALARM ON. CALL LIGHT WITHIN REACH. WILL CONTINUE TO MONITOR.
[2020-02-29 20:13] VITALS: BP 123/51
--- NOTE | 2020-02-29 21:25 | NUR ---
PATIENT C/O PAIN TO RIGHT HIP, LEG, & GROIN. PAIN MEDICATION GIVEN PER ORDER. BED LOW. CALL LIGHT WITHIN REACH. WILL CONTINUE TO MONITOR.
--- NOTE | 2020-03-01 02:10 | NUR ---
I have reviewed this patient and I concur with the Shift Assessment completed by the Licensed Practical Nurse today this shift.
[2020-03-01 05:47] LABS: BASOPHILS 0.7 % (0-2); EOSINOPHILS 5.2 % (0-7); HEMATOCRIT 31.5 % (36.0-48.0); HEMOGLOBIN 9.5 g/dL (12-16); IMMATURE GRANULOCYTES 0.2 % (0-5); LYMPHOCYTES 45.7 % (15-50); MCH 28.8 pg (26.0-34.0); MCHC 30.2 g/dL (31.0-37.0); MCV 95.5 fL (80.0-100.0); MONOCYTES 12.8 % (2-11); NEUTROPHILS 35.4 % (40-80); PLATELET COUNT 215 10x3/uL (130-400); RDW 15.8 % (11.5-14.5); WBC 5.4 10x3/uL (4.8-10.8)
[2020-03-01 06:01] LABS: ANION GAP 11.4 mmol/L (8-16); CALCIUM 8.6 mg/dL (8.5-10.1); CARBON DIOXIDE 26.7 mmol/L (21.0-32.0); CREATININE - SERUM 0.9 mg/dL (0.6-1.3); POTASSIUM - SERUM 4.1 mmol/L (3.5-5.1)
[2020-03-01 07:55] VITALS: BP 91/38
--- NOTE | 2020-03-01 13:42 | NUR ---
Nutrition Follow-up: PO intake remains good. Denies N/V. Pt reports last BM 02/26. Noted Miralax and Dulcolax ordered PRN. Diet: Regular PO intake: 75-100% Wt: 150# (02/25) Labs reviewed Meds reviewed -Monitor wt. -RD following.
--- NOTE | 2020-03-01 15:57 | NUR ---
SITTING UP IN BED WATCHING TV AND EATING A SNACK. PAIN MEDS GIVEN REQUESTED. SHE C/O PAIN TO TO HIP SURGICAL SITE.
--- NOTE | 2020-03-01 19:08 | NUR ---
GREETED PATIENT AND INTRODUCED MYSELF HER NURSE. PATIENT IS LAYING QUIETLY IN BED WATCHING TV AT THIS TIME. RESPIRATIONS EVEN. NO S/S OF DISTRESS. DENIES ANY NEEDS AT THIS TIME. BEDSIDE SHIFT REPORT COMPLETED FROM OFF GOING NURSE. CALL LIGHT IN REACH.
[2020-03-01 19:30] VITALS: BP 122/53
--- NOTE | 2020-03-02 00:56 | NUR ---
PT AWAKE LAYING IN BED WATCHING TV. RESPIRATIONS EVEN. NO S/S OF DISTRESS. DENIES ANY NEEDS AT THIS TIME. CALL LIGHT IN REACH.
--- NOTE | 2020-03-02 05:12 | NUR ---
PT RESTING QUIETLY WITH EYES CLOSED. RESPIRATIONS EVEN. NO S/S OF DISTRESS. CALL LIGHT IN REACH.
[2020-03-02 07:00] VITALS: BP 108/53
--- NOTE | 2020-03-02 07:15 | NUR ---
REPORT RECEIVED. PT SITTING UP IN BED. HAS PELVIC FRACTURE. SHE IS ALERT AND ORIENTED. HAS NO COMPLAINTS OR NEEDS AT THIS TIME. CALL LIGHT IN REACH.
--- NOTE | 2020-03-02 09:15 | NUR ---
PT IN THERAPY.
--- NOTE | 2020-03-02 11:50 | NUR ---
ASSISTED TO BATHROOM. BACK TO WHEELCHAIR TO EAT LUNCH. NO NEEDS AT THIS TIME. WILL CONTINUE TO MONITOR.
--- NOTE | 2020-03-02 12:54 | NUR ---
PAIN MEDICATION GIVEN PER REQUEST.
--- NOTE | 2020-03-02 19:13 | NUR ---
GREETED PATIENT AND INTRODUCED MYSELF HER NURSE. PATIENT IS LAYING IN BED RESTING AT THIS TIME WITH RIGHT LEG ELEVATED ON PILLOWS. RESPIRATIONS EVEN. NO S/S OF DISTRESS. BEDSIDE SHIFT REPORT COMPLETE FROM OFF GOING NURSE. CALL LIGHT IN REACH.
[2020-03-02 23:05] VITALS: BP 105/35
--- NOTE | 2020-03-03 05:43 | NUR ---
PT AWAKE AND ASSISTED TO BATHROOM USING WHEELCHAIR. ADMINISTERED PRN PAIN MEDICATION FOR PAIN 8/1O IN RIGHT LEG. BACK TO BED AND REPOSITIONED FOR COMFORT. CALL LIGHT IN [facility].
--- NOTE | 2020-03-03 07:05 | NUR ---
ALERT AND ORIENTED, RESTING IN BED WITH EYES OPEN. NO C/O PAIN. NO S/S OF ACUTE DISTRESS NOTED. MINIMUM ASSIST. UP IN WHEELCHAIR. URINARY FREQUENCY/RETENTION. NON-WEIGHT BEARING RIGHT LEG. DENIES ANY NEEDS AT THIS TIME. CALL LIGHT IN REACH. WILL CONTINUE TO MONITOR.
[2020-03-03 07:23] LABS: BASOPHILS 0.5 % (0-2); EOSINOPHILS 4.8 % (0-7); HEMOGLOBIN 10.5 g/dL (12-16); IMMATURE GRANULOCYTES 0.4 % (0-5); LYMPHOCYTES 29.3 % (15-50); MCH 29.7 pg (26.0-34.0); MCHC 31.8 g/dL (31.0-37.0); MCV 93.2 fL (80.0-100.0); MEAN PLATELET VOLUME 8.8 fL (7.4-10.4); MONOCYTES 12.9 % (2-11); NEUTROPHILS 52.1 % (40-80); PLATELET COUNT 206 10x3/uL (130-400); RBC 3.54 10x6/uL (4.00-5.40); RDW 15.6 % (11.5-14.5); WBC 5.7 10x3/uL (4.8-10.8)
[2020-03-03 07:38] LABS: ANION GAP 12.9 mmol/L (8-16); CALCIUM 8.6 mg/dL (8.5-10.1); CARBON DIOXIDE 25.4 mmol/L (21.0-32.0); CREATININE - SERUM 0.9 mg/dL (0.6-1.3); POTASSIUM - SERUM 4.3 mmol/L (3.5-5.1)
[2020-03-03 08:00] VITALS: BP 117/57
--- NOTE | 2020-03-03 10:15 | NUR ---
PATIENT C/O PAIN 8/10 TO PELVIC AREA. GAVE OXYCODONE 10 MG PER PHYSICIAN ORDERS. CALL LIGHT IN REACH. WILL CONTINUE TO MONITOR.
--- NOTE | 2020-03-03 12:00 | NUR ---
I have reviewed this patient and I concur with the Shift Assessment completed by the Licensed Practical Nurse today this shift.
--- NOTE | 2020-03-03 14:15 | NUR ---
PATIENT C/O PAIN 9/10 TO PELVIC AREA D/T PHYSICIAL THERAPY. GAVE PATIENT OXYCODONE 10 PER PHYSICIAN ORDERS. CALL LIGHT IN REACH. WILL CONTINUE TO MONITOR.
--- NOTE | 2020-03-03 16:16 | NUR ---
CARE TEAM MEETING: PATIENT ATTENDED THE MEETING. HER TENATIVE DISCHARGE DATE IS 03/05/20. WILL CONTINUE TO FOLLOW WITH PATIENT. HER QUESTIONS AND CONCERNS WERE ADDRESSED
--- NOTE | 2020-03-03 16:29 | RHP ---
PATIENT: HOLLAND DUBOIS MEDICAL RECORD: [id number] ACCOUNT: [id number] LOCATION:[id number] : 56 ADMISSION DATE: 02/25/20 REHABILITATION HISTORY AND PHYSICAL EXAMINATION POST ADMISSION PHYSICIAN EXAMINATION ADMITTING DIAGNOSIS: Pelvic fracture. HISTORY OF PRESENT ILLNESS: The patient is a 60-year-old female patient that is at home post-total hip that underwent on 01/19/2020 and therapy had recommended inpatient acute rehabilitation at that time, but she wanted to go home. She returned home with her granddaughter who is assisting her. She sustained a fall on 02/19/2020 where she landed on both knees. She had a CT of her pelvis, which showed bilateral hip arthroplasty. She had osteoarthritic changes seen and bilateral sacroiliac joints. The patient apparently was not doing well at home since that fall and now the pelvic fracture and periprosthetic fracture of her right hip joint. She has been receiving home health and physical therapy. They spoke with the orthopedic surgeon, who felt like inpatient therapy would be better since she had fallen at home. She has been receiving home health and practical nursing faculty, she needs to be monitored closely for any type of possible seizure activity. She has got a history of this, pain control with acute pain. Monitor input and output. Recently, had a UTI, electrolyte imbalances, proximal muscle weakness, balance deficits, decreased activity tolerance, and impaired mobility. She has got decreased range of motion, decreased strength and gait disturbance. She has got low endurance. She fatigues easily. She has got inability to care for herself and self-care deficits. These are all barriers for her discharge home. She lives at home alone, was independent with her ADLs and mobility prior to this. She is in a rollator. Her granddaughter has been staying with her since discharge on 01/23/2020. She is currently set up for mod assist for ADLs and mod assist for mobility. She plans to be able to return home as close to her prior level of functioning or better. Comorbidities include weakness, periprosthetic fracture of the right hip, fracture of the pelvis, osteoarthritis of the hip and underwent total hip replacement on 01/19/2020. She had an acute fall on 02/19/2020. She has got impaired mobility, chronic back pain, deconditioning, proximal muscle weakness, self-care deficits and loss of ADLs. PAST MEDICAL HISTORY: Significant for seizures, got a history of dentures, coronary artery disease, COPD, tobacco use, angina, hypertension, kidney stones, urinary incontinence, osteoporosis, compression fractures, chronic back pain, depression and anxiety. PAST SURGICAL HISTORY: Includes a hysterectomy. She has had a cystectomy. She has had angioplasty, spinal fusion. ALLERGIES: NUBAIN, TORADOL, AND ULTRAM. CURRENT MEDICATIONS: Include Effexor 75 mg daily, she is on Zetia 10 mg daily, Wellbutrin 300 mg daily, she is on Ranexa 500 mg b.i.d., atorvastatin 80 mg at bedtime, Coreg 6.25 mg b.i.d. with meals, trazodone 50 mg at bedtime, and Percocet 10/325 one tab every 4 hours p.r.n. HABITS: She does have a history of tobacco use. She is using a smokeless tobacco at this time. HISTORY AND PHYSICAL [id number] HOLLAND DUBOIS FAMILY HISTORY: Noncontributory. SOCIAL HISTORY: The patient hopes to return back home and get back to her prior level of functioning. REVIEW OF SYSTEMS: GENERAL: Does complain of weakness and fatigue. HEENT: Denies cold, cough, or congestion. CARDIOVASCULAR: Denies any chest pain. PHYSICAL EXAMINATION: VITAL SIGNS: Stable, afebrile. GENERAL: A somewhat obese female, in no acute distress upon exam. HEENT: Normocephalic and atraumatic. Mucosa moist. NECK: Supple, with no lymphadenopathy. LUNGS: Clear at this time in upper lobes. CARDIOVASCULAR: Regular rate and rhythm. No murmurs, rubs or gallops. ABDOMEN: Soft, benign, and nondistended. Positive bowel sounds times 4. EXTREMITIES: No clubbing, cyanosis or edema. NEUROLOGIC: She does have proximal muscle weakness. LABORATORY DATA: White count is 5.3, H&H of 9.5 and 31.0, and platelet count is 190. Sodium 140, potassium 3.7, BUN and creatinine of 7 and 0.8 and blood sugar is noted to be 108. ASSESSMENT: This is a 60-year-old female patient admitted to rehab with a working diagnosis of pelvic fracture and debility. The patient has potential to make improvement. We instituted the following multidisciplinary therapies include, but not limited to physical, occupational, respiratory, speech, nutritional services, prosthetics and orthotics. Given her complex medical condition and risk for more complications, rehabilitation services cannot be provided at a low level of care such as nursing home facility. PLAN: 1. Admit to [facility] for intensive inpatient therapy to include the following disciplines; A. Physical therapy to improve gait, all transfer skills and bed mobility to a modified independent level. B. Occupational therapy to improve activities of daily living. C. Case management to assist with discharge planning and placement options. D. Nutrition to assist with nutritional needs. E. Rehabilitation nursing to assist in monitoring the patient's underlying medical conditions and to assist with any type bowel or bladder management. 2. The patient's current medication and medical care will be continued. 3. We will go ahead and lower her Coreg dosage secondary to some hypotension. 4. I am going to see again in the a.m. TRANSINT:[id number] Voice Confirmation ID: [id number] DOCUMENT ID: [id number] ELLE notes whether there has been none or any medical/functional change since admission: - No change since pre-admission screen. HISTORY AND PHYSICAL [id number] HOLLAND DUBOIS attests patient continues to be appropriate for IRF: - Continues to be appropriate. KAYKAY OATES MD at 1629 CC: [id number] DICTATION DATE: 02/26/20 0834 RECOVERY AUDITOR: 02/26/20 0931 ADM IN [facility] [address] [place] [address]
--- NOTE | 2020-03-03 16:54 | NUR ---
PATIENT C/O BEING CONSTIPATED, GAVE 30 ML OF MILK OF MAGNESIA. CALL LIGHT IN REACH. WILL CONTINUE TO MONITOR.
--- NOTE | 2020-03-03 18:09 | NUR ---
ALERT AND ORIENTED. NO C/O PAIN. NO S/S OF ACUTE DISTRESS NOTED. DENIES ANY NEEDS AT THIS TIME. CALL LIGHT IN REACH. WILL CONTINUE TO MONITOR.
--- NOTE | 2020-03-03 18:59 | NUR ---
GREETED PATIENT AND INTRODUCED MYSELF HER NURSE. PATIENT IS LAYING IN BED WATCHING TV AT THIS TIME. COMPLAINING OF NAUSEA. WILL CALL DR AND TRY AND GET AN ORDER FOR ZOFRAN. RESPIRATIONS EVEN. NO S/S OF DISTRESS. STATES THAT PAIN IS 8/10 IN RIGHT LEG AND RIGHT HIP. CALL LIGHT IN REACH.
[2020-03-03 20:33] VITALS: BP 103/50
--- NOTE | 2020-03-04 01:24 | NUR ---
PT RESTING QUIETLY WITH EYES CLOSED. RESPIRATIONS EVEN. NO S/S OF DISTRESS. CALL LIGHT IN REACH.
--- NOTE | 2020-03-04 04:07 | NUR ---
PT RESTING QUIETLY WITH EYES CLOSED. RESPIRATIONS EVEN. NO S/S OF DISTRESS. CALL LIGHT IN REACH.
[2020-03-04 08:00] VITALS: BP 103/55
--- NOTE | 2020-03-04 08:00 | NUR ---
PATIENT RESTING IN BED, DENIES ANY NEEDS AT THIS TIME, AWAKE AND ALERT, ASSESSMENT COMPLETED, C/L AND H2O IN REACH.
--- NOTE | 2020-03-04 12:00 | NUR ---
PT. IN BED RESTING, AWAKE AND ALERT, DENIES ANY NEEDS AT THIS TIME, C/L AND H2O IN REACH
--- NOTE | 2020-03-04 16:11 | NUR ---
PT. UP IN W/C WITH THERAPY, DENIES ANY NEEDS AT THIS TIME
[2020-03-04 20:00] VITALS: BP 128/56
--- NOTE | 2020-03-04 23:44 | NUR ---
RECEIVED PATIENT IN BED AT THE BEGINNING OF THE SHIFT, PLEASANT, NEEDS MILD ASSISTANCE,MANIPULATES WHEELCHAIR WELL, COMPLIANT WITH MEDS, WILL FOLLOW POC
[2020-03-05 08:00] VITALS: BP 137/59
--- NOTE | 2020-03-05 08:00 | NUR ---
PATIENT UP IN BED AWAKE AND ALERT, ASSESSMENT COMPLETE, PAIN MED GIVEN EARLIER, PT. STATES PAIN HAS EASED, DENIES ANY OTHER NEEDS AT THIS TIME, C/L AND H2O IN REACH.
[2020-03-05 08:03] LABS: BASOPHILS 0.5 % (0-2); EOSINOPHILS 4.4 % (0-7); HEMOGLOBIN 10.3 g/dL (12-16); IMMATURE GRANULOCYTES 0.4 % (0-5); LYMPHOCYTES 34.7 % (15-50); MCH 28.9 pg (26.0-34.0); MCHC 30.3 g/dL (31.0-37.0); MCV 95.5 fL (80.0-100.0); MEAN PLATELET VOLUME 8.9 fL (7.4-10.4); MONOCYTES 11.2 % (2-11); NEUTROPHILS 48.8 % (40-80); PLATELET COUNT 229 10x3/uL (130-400); RBC 3.56 10x6/uL (4.00-5.40); RDW 15.6 % (11.5-14.5); WBC 5.7 10x3/uL (4.8-10.8)
[2020-03-05 08:16] LABS: ANION GAP 11.5 mmol/L (8-16); CALCIUM 8.8 mg/dL (8.5-10.1); CARBON DIOXIDE 26.1 mmol/L (21.0-32.0); CREATININE - SERUM 1.1 mg/dL (0.6-1.3); POTASSIUM - SERUM 4.6 mmol/L (3.5-5.1)
--- NOTE | 2020-03-05 09:53 | NUR ---
PATIENT DISCHARGING HOME TODAY WITH FAMILY. LISA AT HOME WILL RESUME THERAPY AT HOME. KAREN SIGNED FOR HOME HEALTH , NO COMPARE DATA REVIEWED PER PATIENT REQUEST. IMM SERVED AND EXPLAINED, COPY GIVEN TO PATIENT AND FILED IN CHART. SHIRLEY DELIVERED A ROLLING WALKER TO PATIENT. DR. WEEKS 03/08/20 @ 3:00 DISCHARGE INSTRUCTIONS FAXED TO PCP, HOME HEALTH AND REVIEWED WITH PATIENT PER PRIMARY NURSE.
== END 2020-03-05 13:20 | disposition home health service (06) | DRG 561 ==
LOC: D.REHAB 13:15
PROVIDERS: ADMIT Emergency Medicine; ATTEND Emergency Medicine
DX: M97.01XD Periprosthetic fracture around internal prosthetic right hip joint, subsequent encounter (principal); S32.9XXD Fracture of unspecified parts of lumbosacral spine and pelvis, subsequent encounter for fracture with routine healing; Z96.641 Presence of right artificial hip joint; M16.11 Unilateral primary osteoarthritis, right hip; I10 Essential (primary) hypertension; I25.10 Atherosclerotic heart disease of native coronary artery without angina pectoris; J44.9 Chronic obstructive pulmonary disease, unspecified; M81.0 Age-related osteoporosis without current pathological fracture; F41.8 Other specified anxiety disorders; Z72.0 Tobacco use; W19.XXXD Unspecified fall, subsequent encounter

== ENCOUNTER 2020-03-18 11:59 | Emergency (ER) | payer MEDICARE ==
[~2020-03-18] VITALS: Ht 147.3 cm; Wt 71.8 kg
[2020-03-18 12:18] VITALS: Ht 147.3 cm; Wt 71.8 kg
[2020-03-18 13:40] VITALS: BP 104/50
== END 2020-03-18 13:40 | disposition home or self-care (01) ==
LOC: D.ER 11:59
DX: R03.0 Elevated blood-pressure reading, without diagnosis of hypertension (principal); I10 Essential (primary) hypertension; J44.9 Chronic obstructive pulmonary disease, unspecified

== ENCOUNTER → 2020-05-03 09:06 | Outpatient (CLI) | payer MEDICARE ==
[2020-03-18 12:18] VITALS: BMI 33.0
== END | disposition home or self-care (01) ==
LOC: D.NM 09:06
PROVIDERS: ATTEND Clinical Nurse Specialist Family Health
DX: M97.01XA Periprosthetic fracture around internal prosthetic right hip joint, initial encounter (principal)

== ENCOUNTER → 2020-06-01 20:36 | Outpatient (CLI) | payer MEDICARE ==
[2020-03-18 12:18] VITALS: BMI 33.0
== END | disposition home or self-care (01) ==
LOC: D.LABREF 20:36
PROVIDERS: ATTEND Orthopaedic Surgery
DX: M16.11 Unilateral primary osteoarthritis, right hip (principal)

== ENCOUNTER 2020-06-08 15:50 | Inpatient (IN) | payer MEDICARE ==
[~2020-06-08] VITALS: Ht 147.3 cm; Wt 67.5 kg
[2020-06-16] MEDS ORDERED: BUSPAR5 MG PO (14:41)
[2020-06-16 15:54] LABS: BASOPHILS 0.4 % (0-2); EOSINOPHILS 2.1 % (0-7); HEMATOCRIT 37.9 % (36.0-48.0); HEMOGLOBIN 12.1 g/dL (12-16); LYMPHOCYTES 45.3 % (15-50); MCH 29.7 pg (26.0-34.0); MCHC 31.9 g/dL (31.0-37.0); MCV 93.1 fL (80.0-100.0); MEAN PLATELET VOLUME 9.8 fL (7.4-10.4); MONOCYTES 7.6 % (2-11); NEUTROPHILS 44.6 % (40-80); PLATELET COUNT 207 10x3/uL (130-400); RBC 4.07 10x6/uL (4.00-5.40); RDW 13.5 % (11.5-14.5); WBC 4.8 10x3/uL (4.8-10.8)
[2020-06-16 16:02] LABS: CALC OSMOLALITY 285 mosm/kg (275-300); CALCIUM 8.6 mg/dL (8.5-10.1); CARBON DIOXIDE 30.1 mmol/L (21.0-32.0); CHLORIDE - SERUM 105 mmol/L (98-107); CREATININE - SERUM 0.8 mg/dL (0.6-1.3); GLUCOSE 97 mg/dL (74-106); POTASSIUM - SERUM 3.7 mmol/L (3.5-5.1); SODIUM 144 mmol/L (136-145); UREA NITROGEN 11 mg/dL (7-18); eGFR NON AFRICAN AMERICAN 77 mL/min (90-120)
[2020-06-16 16:07] LABS: APTT 27.5 SECONDS (22.8-39.4)
[2020-06-16 16:08] LABS: PROTIME 13.1 SECONDS (11.6-15.0)
[2020-06-16 16:54] LABS: BILIRUBIN NEGATIVE (NEGATIVE); GLUCOSE NEGATIVE (NEGATIVE); KETONE NEGATIVE (NEGATIVE); NITRITE NEGATIVE (NEGATIVE); UROBILINOGEN NORMAL (NORMAL)
[2020-06-21] VITALS (13 sets, daily range): BP systolic 85–137; BP diastolic 36–71; BMI 31.2; BMI 31.1
--- NOTE | 2020-06-21 12:55 | NUR ---
THROUGH TRAFFIC KEPT TO A MINIMUM.
--- NOTE | 2020-06-21 18:16 | NUR ---
PT CO OF PAIN 10 OUT OF 10 ON THE PAIN SCALE. CALLED DR DONNELLY FOR AN ORDER OF 650 MG OF TYLENOL Q 4 H SINCE PATIENT IS ALLERGIC TO TORADOL AND ULTRAM. PT BP IS RUNNING TO LOW TO GIVE ANYTHING THAT WOULD DROP HER BP LOWER. SHE VOICED HER UNDERSTANDING. COKES PROVIDED REQUESTED. CL IN REACH. TM
--- NOTE | 2020-06-21 19:55 | NUR ---
PATIENT RESTING IN BED WITH NO S/S OF DISTRESS AND DENIES NEEDS AT THIS TIME. BED IN LOWEST POSITION AND CALL LIGHT WITHIN REACH. ENCOURAGED THE PATIENT TO CALL IF SHE HAS NEEDS. WILL CONTINUE TO MONITOR.
[2020-06-22] VITALS (11 sets, daily range): BP systolic 88–128; BP diastolic 40–67; Ht 147.3 cm; Wt 67.5 kg
[2020-06-22 06:00] LABS: HEMATOCRIT 23.9 % (36.0-48.0); MCH 28.8 pg (26.0-34.0); MEAN PLATELET VOLUME 9.7 fL (7.4-10.4); RBC 2.57 10x6/uL (4.00-5.40); RDW 13.5 % (11.5-14.5); WBC 5.5 10x3/uL (4.8-10.8)
[2020-06-22 06:33] LABS: HEMOGLOBIN 7.4 g/dL (12-16)
--- NOTE | 2020-06-22 08:01 | NUR ---
PT ASSISTED ON AND OFF BED QUINTERO. NO NEEDS AT THIS TIME. CL IN REACH. WCTM
--- NOTE | 2020-06-22 09:57 | NUR ---
Rehab Note- Acute Inpatient Rehab prescreen order received. THe patient has [employer] insurance and will require a PreAuth. Will need OT Eval ordered for PreAuth process. Also has a pending PT Eval at this time. Thank you for this referral! Keya Allen RN Clinical Liaison, [facility]
--- NOTE | 2020-06-22 10:21 | NUR ---
PT REQUESTING PAIN MEDS. BP 103/48. ASSISTED ON AND OFF BEDPAN. CL IN REACH. BED ALARM ON. WCTM
--- NOTE | 2020-06-22 19:40 | NUR ---
PATIENT RESTING IN BED WITH NO S/S OF DISTRESS AND DENIES NEEDS AT THIS TIME. BED IN LOWEST POSITION AND CALL LIGHT WITHIN REACH. VSS. ENCOURAGED THE PATIENT TO CALL IF SHE HAS NEEDS. WILL CONTINUE TO MONITOR.
--- NOTE | 2020-06-22 20:23 | NUR ---
ADMINISTERED MEDS PER ORDERS. PATIENT DENIES OTHER NEEDS. WILL CONTINUE TO MONITOR.
[2020-06-23] VITALS (7 sets, daily range): BP systolic 99–118; BP diastolic 42–58
[2020-06-23 07:16] LABS: MCH 29.2 pg (26.0-34.0); MCHC 32.3 g/dL (31.0-37.0); MEAN PLATELET VOLUME 9.9 fL (7.4-10.4); RDW 14.3 % (11.5-14.5)
[2020-06-23 07:34] LABS: HEMATOCRIT 29.7 % (36.0-48.0); HEMOGLOBIN 9.6 g/dL (12-16); MCV 90.3 fL (80.0-100.0); RBC 3.29 10x6/uL (4.00-5.40); WBC 7.1 10x3/uL (4.8-10.8)
--- NOTE | 2020-06-23 09:03 | NUR ---
PT ALERT X 4. BREATH SOUNDS CLEAR BILAT. IV TO LEFT AC, SALINE LOCKED. DRESSING TO RIGHT HIP CDI. SCD'S IN USE. PT REPORTING PAIN OF 8/10, MEDICATED PER ORDERS, WILL CONTINUE TO MONITOR. BED LOW, CALL LIGHT IN REACH. NO OTHER NEEDS AT THIS TIME.
--- NOTE | 2020-06-23 19:15 | NUR ---
REPORT FROM ESTEFANI GRAMAJO
--- NOTE | 2020-06-23 19:45 | NUR ---
PT STATES SHE NEED THE BEDPAN. I HEARD IN REPORT THAT SHE DOES USE A BEDPAN. SHE USED THE BED QUINTERO AND VOIDED APPROX. 150ML WE WERE TALKING SHE TOLD ME ABOUT HER DAUGHTERS WHO HAVE HAD PE'S WITH SURGERIES THEY'D HAD IN THE PAST AND SHE STATES IT'S HEREDITY.
--- NOTE | 2020-06-23 20:00 | NUR ---
LOOKED THROUGH PT CHART AND SAW THAT PT HAD GOTTEN PT UP TODAY. SHE IS TTWB ON THE RIGHT SIDE FROM HIP SURGERY. ALONG WITH C/O OF HER RIGHT HIP PAIN SHE HAS MULTIPLE PAIN SIGHTS THAT SHE LIKES TO TALK ABOUT.
--- NOTE | 2020-06-23 20:30 | NUR ---
PT CALLED AGAIN FOR THE BED QUINTERO. I TOLD HER THAT I WAS GOING TO GET HER UP TO THE BSC. SHE WAS AGREEABLE. SHE FOLLOWED HER HIP PRECAUTIONS VERY WELL AND JUST NEEDED SOME VERBAL CUES. THE BSC IS SITTING DIRECTLY AT HER BEDSIDE. WELL VOIDING, PT WAS ABLE TO PASS SOME GAS. SHE WAS GENTLY ASSISTED BACK TO HER BED. AGAIN, SHE DID VERY WELL. SHE IS GOING TO WORK ON HER STRENGTH FOR UPPER BODY WITH THE TRAPEZE OVER HER BED. SHE UNDERSTANDS NOW THAT SHE CAN USE HER LEFT LEG JUST FINE WELL HER ARMS. I EXPLAINED TO HER THAT AFTER OUR DISCUSSION ON PE'S THAT SHE NEEDED TO GET UP. SHE STATES SHE KNOWS SHE SHOULD. SHE STATES SHE IS USING HER INCENTIVE SPIROMETER DIRECTED. SHE DOES NOT HAVE AN IV ANYMORE DAY SHIFT TOOK IT OUT. SHE HAS SCD'S IN HER ROOM BUT DOESN'T WANT TO USE THEM. I EXPLAINED TO HER THAT THIS WAS A PRECAUTION TAKEN TO PREVENT BLOOD CLOTS, T00. HEART SOUNDS ARE WNL AND LUNGS ARE CLEAR. BOWEL SOUNDS HEARD. SHE HAS A LONG INCISION ON THE RIGHT LEG. NO DRAINAGE NOTED. PT IS ON ROOM AIR.
--- NOTE | 2020-06-23 21:41 | NUR ---
PO MEDS GIVEN. PT IS ASKING FOR PAIN MEDS. I LET HER KNOW THAT IT WAS TOO EARLY BUT I'D BRING IT WHEN I COULD. THIS SATISFIED HER.
--- NOTE | 2020-06-23 22:06 | NUR ---
OT NOTE: PT REQUIRED MOD A X2 FOR CHAIR TO BED TSF. PT COMPLETED SIT TO SUPINE WITH MOD/MAX A FOR LE MANAGEMENT. PT COMPLETED UE AROM WITH FUNCTIONAL TSF TASKS. 120-143 THANK YOU,TERRI PEARSON
--- NOTE | 2020-06-23 22:50 | NUR ---
PT WAS TAKEN HER PAIN MEDS. SHE TOOK THE PERCOCET 10 PO. HER LIGHTS WERE TURNED OFF SO SHE COULD FALL ASLEEP EASIER.
--- NOTE | 2020-06-24 00:43 | NUR ---
PT GOT UP AGAIN TO THE BSC TO VOID. SHE DID VERY WELL WITH HER HIP PRECAUTIONS AND REQUIRED LESS ASSISTANCE AND VERBAL CUES.
--- NOTE | 2020-06-24 02:41 | NUR ---
PT REQUESTED PAIN MEDICATION. SHE RATES HER PAIN A 10/10. I'M NOT SURE IF ALL THE PAIN IS HIP RELATED B/C SHE HAS C/O LEFT SHOULDER PAIN ALL NIGHT, TOO PERCOCET 10 GIVEN PO.
[2020-06-24 05:00] VITALS: BP 112/56
--- NOTE | 2020-06-24 05:00 | NUR ---
VS TAKEN. WHEN IN PT ROOM SHE MADE NOISES LIKE SHE WAS HURTING. WHEN SHE HAD TO LIFT HER LEFT ARM UP A BIT TO GET THE BP CUFF ON SHE MADE A GRUNTING SOUND. SHE NEVER STATED THAT SHE WAS IN PAIN.
--- NOTE | 2020-06-24 07:30 | NUR ---
PT IS RESTING IN BED WITH EYES OPEN. RESPIRATIONS ARE EVEN AND UNLABORED. PT IS AAO X 4 AND ANSWERS ALL QUESTIONS APPROPRIATLEY. DRESSING TO RIGHT HIP NOTED AND IS CDI. PT DENIES PRESENCE OF NUMBNESS/TINGLING AT THIS TIME. PT REPORTS PAIN TO BILATERAL SHOULDERS. LETTY MCDERMOTT APRN AT BEDSIDE AND INFORMED. ORDER RECD TO OBTAIN EKG. PT DENIES PRESENCE OF DIZZINESS/DYSPNEA AT THIS TIME. PT REQUESTS ASSISTANCE TO BSC. ASSISTANCE GIVEN AND WALKER USED FOR AMBULATION. PT WITH LARGE CONTINENT VOID THAT IS DARK YELLOW AND CLEAR. PT ASSISTED BACK TO BED. PT DENIES FURTHER NEEDS. BED IS IN THE LOWEST POSITION. CALL LI GHT AND BEDSIDE TABLE ARE WITHIN REACH. SIDE RAILS X 2. INCENTIVE SPIROMETER AT BEDSIDE AND ENCOURAGED. PT VERBALIZES UNDERSTANDING. WILL CONT TO MONITOR.
[2020-06-24 07:51] VITALS: BP 126/71
--- NOTE | 2020-06-24 09:41 | NUR ---
EKG COMPLETED PER ORDER. COPY PLACED ON PT CHART.
[2020-06-24 10:59] VITALS: BP 115/47
[2020-06-24 11:46] LABS: CALC OSMOLALITY 271 mosm/kg (275-300); CARBON DIOXIDE 25.9 mmol/L (21.0-32.0); CHLORIDE - SERUM 104 mmol/L (98-107); CKMB 0.9 U/L (0.0-3.6); CREATINE KINASE 445 UL (21-215); GLUCOSE 120 mg/dL (74-106); POTASSIUM - SERUM 3.2 mmol/L (3.5-5.1); SODIUM 136 mmol/L (136-145); TROPONIN-I < 0.017 ng/mL (0.000-0.060); UREA NITROGEN 10 mg/dL (7-18); eGFR NON AFRICAN AMERICAN 59 mL/min (90-120)
[2020-06-24 13:06] LABS: HEMATOCRIT 30.9 % (36.0-48.0); HEMOGLOBIN 10.1 g/dL (12-16); MCH 29.8 pg (26.0-34.0); MCHC 32.7 g/dL (31.0-37.0); MCV 91.2 fL (80.0-100.0); RBC 3.39 10x6/uL (4.00-5.40); RDW 13.9 % (11.5-14.5); WBC 7.9 10x3/uL (4.8-10.8)
[2020-06-24 15:16] VITALS: BP 110/41
[2020-06-24] MEDS ORDERED: PERCOCET 10-321 EAC1 PO ×2 (15:20→16:18)
[2020-06-24] MEDS ORDERED: ELIQUIS2.5 MG PO ×2 (15:20→16:18)
--- NOTE | 2020-06-24 16:46 | MORECARE ---
CASE MANAGEMENT DISCHARGE SUMMARY PATIENT: HOLLAND MONDRAGON UNIT: [id number] ADM DATE: 06/21/20 AGE: 60 : 56 SEX: F ROOM/BED: D.1210 AUTHOR: BENJAMIN COELHO PHYSICIAN: REFERRING PHYSICIAN: MAURICE SHANE MD DATE OF SERVICE: 06/24/20 Discharge Plan Patient Name: HOLLAND MONDRAGON Facility: [facility]:[place] : 1960 Planned Disposition: Home Health Service Anticipated Discharge Date: 06/24/20 Discharge Date: Expected LOS: 3 Initial Reviewer: [email or web address] Initial Review Date: 06/24/2020 Generated: 06/24/20 5:46 pm DCPIA - Discharge Planning Initial Assessment Updated by [email or web address]: Kyra Gutiérrez on 06/24/20 4:41 pm * Is the patient Alert and Oriented? Yes * How many steps to enter\\exit or inside your home? * PCP Hope Virk APN with Dr. Lara * Pharmacy [facility] in [place] * Preadmission Environment Home Alone * ADLs Independent * Equipment Bedside Commode Grab Bars Rolling Walker Shower Chair * Other Equipment Rolator * List name and contact numbers for known caregivers / representatives who currently or will assist patient after discharge: Robert "Zachary" Alanna, Bin, Alistair Mondragon, Son, * Verbal permission to speak to the caregivers and representatives has been obtained from the patient. Yes * Community resources currently utilized Home Health * Please name any agencies selected above. [facility] in [place], [place]. [phone] * Additional services required to return to the preadmission environment? No * Can the patient safely return to the preadmission environment? Yes * Has this patient been hospitalized within the prior 30 days at any hospital? No External Providers External Provider: OTHER-OTHER Next Contact Date: Service Request Date: Service Type: Resolution: Reviewer: Comments: External Provider: [facility] Next Contact Date: Service Request Date: Service Type: Resolution: Reviewer: Comments: Patient Name: HOLLAND MONDRAGON Page [phone] at 1646 All edits/amendments must be made on the electronic document DICTATION DATE: 06/24/201645 REFRIGERATION TECH: JENNIFER 06/24/201645 RPT#: [id number] DC DATE: STATUS: ADM IN [facility] [address] [place] [address] END OF REPORT
--- NOTE | 2020-06-24 16:54 | MORECARE ---
CASE MANAGEMENT DISCHARGE SUMMARY PATIENT: HOLLAND MONDRAGON UNIT: [id number] ADM DATE: 06/21/20 AGE: 60 : 56 SEX: F ROOM/BED: D.1210 AUTHOR: LAQUITA,DOC PHYSICIAN: REFERRING PHYSICIAN: MAURICE SHANE MD DATE OF SERVICE: 06/24/20 Discharge Plan Patient Name: HOLLAND MONDRAGON Facility: [facility]:[place] : 1960 Planned Disposition: Home Health Service Anticipated Discharge Date: 06/24/20 Discharge Date: Expected LOS: 3 Initial Reviewer: [email or web address] Initial Review Date: 06/24/2020 Generated: 06/24/20 5:53 pm Comments DCP- Discharge Planning Updated by [email or web address]: Kyra Gutiérrez on 06/24/20 3:[address] Patient Name: HOLLAND MONDRAGON Admission Status: Elective Accout number: [id number] Admission Date: 06-21-2020 : 1960 Admission Diagnosis: Attending: MAURICE SHANE Current LOS: 3 Anticipated DC Date: 06-24-2020 Planned Disposition: Home Health Service Primary Insurance: [employer] MEDICARE ADV Discharge Planning Comments: CM met with patient to discuss discharge planning / needs. Patient states that prior to hospitalization she lived at home alone, independent. States her discharge plan is to go home and resume [facility] services. States the home environment is safe. States her son, Robert Renae" Alanna, will transport her home. States he lives 3/10 mile from her house. States he checks on her in the morning, at lunch, and again when he gets off work. States her mom, who is 84, will be staying with her to help her also. She added that she also has several neighbors that check on her and help her. Signed KAREN for [facility]. CM explained and patient signed DC IMM. Copies on chart. CM called and spoke with Mp at [facility] about referral. Mp states home health will resume services tomorrow. Patient verbalized understanding and satisfaction with discharge plans. Denies any other discharge planning needs at this time. CM faxed records to [facility] as requested. CM will continue to follow and assist as needed with discharge planning / needs. Remote Ruby On Rails Developer: Kyra Gutiérrez DCPIA - Discharge Planning Initial Assessment Updated by [email or web address]: Kyra Gutiérrez on 06/24/20 4:41 pm * Is the patient Alert and Oriented? Yes * How many steps to enter\\exit or inside your home? * PCP Hope Virk APN with Dr. Lara * Pharmacy [facility] in [place] * Preadmission Environment Home Alone * ADLs Independent * Equipment Bedside Commode Grab Bars Rolling Walker Shower Chair * Other Equipment Rolator * List name and contact numbers for known caregivers / representatives who currently or will assist patient after discharge: Robert "Zachary" Alanna, Son, Alistair Mondragon, Son, * Verbal permission to speak to the caregivers and representatives has been obtained from the patient. Yes * Community resources currently utilized Home Health * Please name any agencies selected above. [facility] in [place], [place]. [phone] * Additional services required to return to the preadmission environment? No * Can the patient safely return to the preadmission environment? Yes * Has this patient been hospitalized within the prior 30 days at any hospital? No Coverage Notice Reviewer: [email or web address] Jerilyn Gutiérrez Notice Issued Date-Time: 06/24/2020 16:05 Notice Type: IM Discharge Notice Notice Delivered To: Patient Relationship to Patient: Self Lockstitch Sleeve Setter Name: Delivery Method: HAND - Hand Delivered Guera Days: Prior Verbal Notification: Recipient Understood Notice: Yes Recipient Signature: Yes Med Rec Note Co-signed by Attending: Coverage Notice Comment: Reviewer: [email or web address] Jerilyn Gutiérrez Notice Issued Date-Time: 06/24/2020 16:05 Notice Type: Patient Choice Letter Notice Delivered To: Patient Relationship to Patient: Self Lockstitch Sleeve Setter Name: Delivery Method: HAND - Hand Delivered Guera Days: Prior Verbal Notification: Recipient Understood Notice: Yes Recipient Signature: Yes Med Rec Note Co-signed by Attending: Coverage Notice Comment: [facility] Last DP export: 06/24/20 3:46 p Patient Name: HOLLAND MONDRAGON Page [id number] at 1654 All edits/amendments must be made on the electronic document DICTATION DATE: 06/24/201652 CLAY ARTISAN: DM 06/24/201652 RPT#: [id number] DC DATE: STATUS: ADM IN [facility] [address] [place] [address] END OF REPORT
--- NOTE | 2020-06-24 17:20 | NUR ---
ALL DISCHARGE INSTRUCTIONS COVERED WITH PT. ALL QUESTIONS ANSWERED. PT WITH (2) MEDICATIONS TO RN SHIFT MGR FROM PHARMACY. PT IS AWARE. DRESSING TO RIGHT HIP CHANGED PER ORDER. (2) EXTRA DRESSING SENT WITH PT. ALL DISCHARGE PAPERS SIGNED BY PT. PT TO NOTIFY NURSE WHEN RIDE AT ER ENTRANCE AND READY FOR TRANSPORT FROM ROOM. ALL SIGNED DC PAPERS PLACED IN PT CHART.
--- NOTE | 2020-06-24 18:00 | NUR ---
PT ESCORTED FROM ROOM VIA WHEELCHAIR FOR TRANSPORT HOME. PT DENIES FURTHER QUESTIONS/CONCERNS/NEEDS AT THIS TIME. PT REPORTS ALL PERSONAL BELONGINGS ARE IN PT BAG. PT THANKS THIS NURSE FOR CARE GIVEN DURING THIS SHIFT.
--- NOTE | 2020-06-25 09:06 | MORECARE ---
CASE MANAGEMENT DISCHARGE SUMMARY PATIENT: HOLLAND DUBOIS UNIT: [id number] ADM DATE: 06/21/20 AGE: 60 : 56 SEX: F ROOM/BED: D.1210 AUTHOR: LAQUITA,DOC PHYSICIAN: REFERRING PHYSICIAN: MAURICE SHANE MD DATE OF SERVICE: 06/25/20 Discharge Plan Patient Name: HOLLAND DUBOIS Facility: [facility]:[place] : 1960 Planned Disposition: Home Health Service Anticipated Discharge Date: 06/24/20 Discharge Date: 06/24/2020 Expected LOS: 3 Initial Reviewer: [email or web address] Initial Review Date: 06/24/2020 Generated: 06/25/20 10:05 am Comments DCP- Discharge Planning Updated by [email or web address]: Kyra Gutiérrez on 06/24/20 3:[address] Patient Name: HOLLAND DUBOIS Admission Status: Elective Accout number: [id number] Admission Date: 06-21-2020 : 1960 Admission Diagnosis: Attending: MAURICE SHANE Current LOS: 3 Anticipated DC Date: 06-24-2020 Planned Disposition: Home Health Service Primary Insurance: [employer] ADV Discharge Planning Comments: CM met with patient to discuss discharge planning / needs. Patient states that prior to hospitalization she lived at home alone, independent. States her discharge plan is to go home and resume [facility] services. States the home environment is safe. States her son, Robert Dubois (Bubba), will transport her home. States he lives 3/10 mile from her house. States he checks on her in the morning, at lunch, and again when he gets off work. States her mom, who is 84, will be staying with her to help her also. She added that she also has several neighbors that check on her and help her. Signed KAREN for [facility]. CM explained and patient signed DC IMM. Copies on chart. CM called and spoke with Mp at [facility] about referral. Mp states home health will resume services tomorrow. Patient verbalized understanding and satisfaction with discharge plans. Denies any other discharge planning needs at this time. CM faxed records to [facility] as requested. CM will continue to follow and assist as needed with discharge planning / needs. Folder And Notcher: Kyra Gutiérrez DCPIA - Discharge Planning Initial Assessment Updated by [email or web address]: Kyra Gutiérrez on 06/24/20 4:41 pm * Is the patient Alert and Oriented? Yes * How many steps to enter\\exit or inside your home? * PCP Hope Virk APN with Dr. Lara * Pharmacy [facility] in [place] * Preadmission Environment Home Alone * ADLs Independent * Equipment Bedside Commode Grab Bars Rolling Walker Shower Chair * Other Equipment Rolator * List name and contact numbers for known caregivers / representatives who currently or will assist patient after discharge: Robert "Zachary" Alanna, Son, Alistair Dubois, Son, * Verbal permission to speak to the caregivers and representatives has been obtained from the patient. Yes * Community resources currently utilized Home Health * Please name any agencies selected above. [facility] in [place], [place]. [phone] * Additional services required to return to the preadmission environment? No * Can the patient safely return to the preadmission environment? Yes * Has this patient been hospitalized within the prior 30 days at any hospital? No Coverage Notice Reviewer: [id number] Jerilyn Gutiérrez Notice Issued Date-Time: 06/24/2020 16:05 Notice Type: IM Discharge Notice Notice Delivered To: Patient Relationship to Patient: Self Gluer Machine Setup Operator Name: Delivery Method: HAND - Hand Delivered Guera Days: Prior Verbal Notification: Recipient Understood Notice: Yes Recipient Signature: Yes Med Rec Note Co-signed by Attending: Coverage Notice Comment: Reviewer: [id number] Jerilyn Gutiérrez Notice Issued Date-Time: 06/24/2020 16:05 Notice Type: Patient Choice Letter Notice Delivered To: Patient Relationship to Patient: Self Gluer Machine Setup Operator Name: Delivery Method: HAND - Hand Delivered Guera Days: Prior Verbal Notification: Recipient Understood Notice: Yes Recipient Signature: Yes Med Rec Note Co-signed by Attending: Coverage Notice Comment: [facility] Last DP export: 06/24/20 3:54 p Patient Name: HOLLAND DUBOIS Page [id number] at 0906 All edits/amendments must be made on the electronic document DICTATION DATE: 06/25/20904 PARENT EDUCATOR: JENNIFER 06/25/20904 RPT#: [id number] DC DATE:06/24/20 STATUS: DIS IN [facility] [address] [place] [address] END OF REPORT
--- NOTE | 2020-06-28 17:35 | MORECARE ---
CASE MANAGEMENT DISCHARGE SUMMARY PATIENT: HOLLAND DUBOIS UNIT: [id number] ADM DATE: 06/21/20 AGE: 60 : 56 SEX: F ROOM/BED: D.1210 AUTHOR: LAQUITA,DOC PHYSICIAN: REFERRING PHYSICIAN: MAURICE SHANE MD DATE OF SERVICE: 06/28/20 Discharge Plan Patient Name: HOLLAND DUBOIS Facility: [facility]:[place] : 1960 Planned Disposition: Home Health Service Anticipated Discharge Date: 06/24/20 Discharge Date: 06/24/2020 Expected LOS: 3 Initial Reviewer: [id number] Initial Review Date: 06/24/2020 Generated: 06/28/20 6:35 pm Comments DCP- Discharge Planning Updated by [email or web address]: Kyra Gutiérrez on 06/24/20 3:[address] Patient Name: HOLLAND DUBOIS Admission Status: Elective Accout number: [id number] Admission Date: 06-21-2020 : 1960 Admission Diagnosis: Attending: MAURICE SHANE Current LOS: 3 Anticipated DC Date: 06-24-2020 Planned Disposition: Home Health Service Primary Insurance: [employer] ADV Discharge Planning Comments: CM met with patient to discuss discharge planning / needs. Patient states that prior to hospitalization she lived at home alone, independent. States her discharge plan is to go home and resume [facility] Health services. States the home environment is safe. States her son, Robert Dubois (Bubba), will transport her home. States he lives 3/10 mile from her house. States he checks on her in the morning, at lunch, and again when he gets off work. States her mom, who is 84, will be staying with her to help her also. She added that she also has several neighbors that check on her and help her. Signed KAREN for [facility]. CM explained and patient signed DC IMM. Copies on chart. CM called and spoke with Mp at [facility] about referral. Mp states home health will resume services tomorrow. Patient verbalized understanding and satisfaction with discharge plans. Denies any other discharge planning needs at this time. CM faxed records to [facility] as requested. CM will continue to follow and assist as needed with discharge planning / needs. Manager Nursing Home: Kyra Gutiérrez DCPIA - Discharge Planning Initial Assessment Updated by [email or web address]: Kyra Gutiérrez on 06/24/20 4:41 pm * Is the patient Alert and Oriented? Yes * How many steps to enter\\exit or inside your home? * PCP Hope Virk APN with Dr. Lara * Pharmacy [facility] in [place] * Preadmission Environment Home Alone * ADLs Independent * Equipment Bedside Commode Grab Bars Rolling Walker Shower Chair * Other Equipment Rolator * List name and contact numbers for known caregivers / representatives who currently or will assist patient after discharge: Robert "Zachary" Alanna, Son, Alistair Dubois, Son, * Verbal permission to speak to the caregivers and representatives has been obtained from the patient. Yes * Community resources currently utilized Home Health * Please name any agencies selected above. [facility] in [place], [place]. [phone] * Additional services required to return to the preadmission environment? No * Can the patient safely return to the preadmission environment? Yes * Has this patient been hospitalized within the prior 30 days at any hospital? No Coverage Notice Reviewer: [id number] Jerilyn Gutiérrez Notice Issued Date-Time: 06/24/2020 16:05 Notice Type: IM Discharge Notice Notice Delivered To: Patient Relationship to Patient: Self Roof Bolter Name: Delivery Method: HAND - Hand Delivered Guera Days: Prior Verbal Notification: Recipient Understood Notice: Yes Recipient Signature: Yes Med Rec Note Co-signed by Attending: Coverage Notice Comment: Reviewer: [id number] Jerilyn Gutiérrez Notice Issued Date-Time: 06/24/2020 16:05 Notice Type: Patient Choice Letter Notice Delivered To: Patient Relationship to Patient: Self Roof Bolter Name: Delivery Method: HAND - Hand Delivered Guera Days: Prior Verbal Notification: Recipient Understood Notice: Yes Recipient Signature: Yes Med Rec Note Co-signed by Attending: Coverage Notice Comment: [facility] Last DP export: 06/25/20 8:06 a Patient Name: HOLLAND DUBOIS Page [id number] at 1735 All edits/amendments must be made on the electronic document DICTATION DATE: 06/28/201734 SCHOOL COORDINATOR: JENNIFER 06/28/20 173 RPT#: [id number] DC DATE:06/24/20 STATUS: DIS IN [facility] [address] [place] [address] END OF REPORT
== END 2020-06-24 18:26 | disposition home health service (06) | DRG 468 ==
LOC: D.SDCHOLD 06-21 06:52 → D.M3 06-21 06:52 → D.SDCHOLD 06-21 09:15 → D.M3 06-21 15:12
PROVIDERS: ADMIT Orthopaedic Surgery; ATTEND Orthopaedic Surgery
PROC: 0SR90JZ Replacement of Right Hip Joint with Synthetic Substitute, Open Approach (ICD-10-PCS; principal; 2020-06-21 09:15)
PROC: 0SP90JZ Removal of Synthetic Substitute from Right Hip Joint, Open Approach (ICD-10-PCS; 2020-06-21 09:15)
DX: T84.031A Mechanical loosening of internal left hip prosthetic joint, initial encounter (principal); Y83.9 Surgical procedure, unspecified as the cause of abnormal reaction of the patient, or of later complication, without mention of misadventure at the time of the procedure; I25.10 Atherosclerotic heart disease of native coronary artery without angina pectoris; J44.9 Chronic obstructive pulmonary disease, unspecified; D64.9 Anemia, unspecified